=== PATIENT | male | born 1985 | race Caucasian/White ===

== ENCOUNTER 2018-04-29 18:19 | Emergency (ER) | payer OTHER ==
[~2018-04-29 18:19] MED LIST: ACETYL PO; AMLODIPINE/BENA1 CAP PO; ATORVASTATIN CA20 MG PO; BETASERON 0.3 M1 KIT SC; CALCIUM 600600 M1 PO; CARBATROL PO; CARNI PO; CARVEDILOL12.5 MG PO; HYDROCORTISONE IV; LIORESAL 10MG T10 MG PO; MULTIVITAMIN1 TAB PO; MYCOPHENOLATE500 MG PO; PREDNISONE5 MG PO; PROPRANOLOL1 MG/ML PO; TIZANIDINE4 MG PO; TYLENOL XSTR500 MG PO; VITAMIN D50000 IU PO
[2018-04-29 18:29] VITALS: BP 150/90
--- NOTE | 2018-04-29 19:29 | ED GI/GU/ABDOMINAL COMPLAINT ---
History of Present Illness General Chief Complaint: Male Genitourinary Problems Stated Complaint: SWELLING TO GROIN AREA Source: patient, family Exam Limitations: no limitations Vital Signs & Intake/Output Vital Signs & Intake/Output Vital Signs Date Time Temp Pulse Resp B/P B/P Pulse O2 O2 Flow FiO2 Mean Ox Delivery Rate 04/29 1849 Room Air 04/29 1829 98.3 82 18 150/90 93 Room Air Allergies Coded Allergies: adhesive (BLISTERS 04/29/18) lactose (LACTOSE INTOLERANT 04/29/18) adhesive tape (Intermediate, BLISTERS - KERLIX IS USED AND TEGADERM OKAY ) milk (Intermediate, EAR INFECTIOM 12/21/15) Reconcile Medications Acetaminophen 500 MG TABLET 1 TAB PO AD WITH BETA INTERFERON SHOTS (Reported) Acetylcarnitine (Acetyl L-Carnitine) (Unknown Strength) CAPSULE 400 MG PO BID SUPPLEMENT (Reported) Amlodipine Besylate/Benazepril (Amlodipine-Benazepril 5-20 MG) 5 MG-20 MG CAPSULE 1 CAP PO DAILY BP (Reported) Atorvastatin Calcium 20 MG TABLET 1 TAB PO DAILY CHOLESTEROL (Reported) Baclofen 10 MG TABLET 3 TAB PO BID MUSCLE SPASMS (Reported) Baclofen 10 MG TABLET 4 TAB PO QAM MUSCLE SPASMS (Reported) Biotin 300 MCG TABLET 1 TAB PO DAILY SUPPLEMENT (Reported) Calcium Carbonate (TUMS) (Unknown Strength) TAB.CHEW 2 TAB PO DAILY SUPPLEMENT (Reported) Carbamazepine 300 MG CPMP.12HR 2 CAP PO BID SEIZURES (Reported) Carvedilol 6.25 MG TABLET 1 TAB PO BID HEART/BP (Reported) Cholecalciferol (Vitamin D3) (Vitamin D) (Unknown Strength) CAPSULE (Unknown Dose) PO DAILY SUPPLEMENT (Reported) Clotrimazole/Betamethasone Dip (Clotrimazole-Betamethasone Crm) 1 %-0.05 % CREAM..G. 1 KYREE TOP TID fungal infection apply to affected area(s) Interferon Beta-1b (Betaseron) 0.3 MG KIT 0.3 MG SC Monday MS ( Reported) Multivitamin-Min/Iron/FA/Vit K (Multi-Day Plus Minerals Tablet) 18 MG IRON-400 MCG-25 MCG TABLET 1 TAB PO DAILY SUPPLEMENT (Reported) Mycophenolate Mofetil 500 MG TABLET 1 TAB PO BID UNKNOWN (Reported) Nystatin (Nystop) 100,000 UNIT/GRAM POWDER 1 KYREE TD TID yeast Prednisone 5 MG TABLET 1 TAB PO DAILY STEROID (Reported) Propranolol HCl 20 MG TABLET 1 TAB PO TID TREMORS (Reported) Tizanidine HCl (Zanaflex) 2 MG CAPSULE 1 CAP PO QPM MUSCLE RELAXER (Reported) Triage Note: 32M W HX MS ARRIVES WITH TESTICULAR SWELLING SINCE MONDAY, NOW PAINFUL AND RED. AFEBRILE. DENIES PENILE DISCHARGE. DENIES DYSURIA. REPORTS SOME LOW ABD PAIN AND DENIES N/V Triage Nurses Notes Reviewed? yes Onset: Gradual Duration: day(s): Timing: recent history Quality/Severity: moderate Location: testicle HPI: 32yo male with hx of MS presents to ED complaining of testicular swelling and pain x 2-3 days. Patient began complaining of testicular swelling on 04/28. He reported testicular pain beginning today. He cannot say which testicle is bothering him. Patient has remote history of surgical repair of undescended testicle. They deny fevers, chills, dysuria, abdominal pain. (Jenny Kunz) Past History Travel History Traveled to [place] past 21 day No Medical History Any Pertinent Medical History? see below for history Neurological: multiple sclerosis, BLIND SEIZURES Cardiovascular: hypertension Renal: chronic kidney disease Endocrine: PROTEIN UREA Surgical History Surgical History: non-contributory Psychosocial History Who do you live with Patient and family What is your primary language Uzbek Tobacco Use: Never used Family History Hx Contributory? No (Jenny Kunz) Review of Systems Review of Systems Constitutional: Reports: no symptoms. EENTM: Reports: no symptoms. Respiratory: Reports: no symptoms. Cardiovascular: Reports: no symptoms. GI: Reports: no symptoms. Genitourinary: Reports: see HPI. Musculoskeletal: Reports: no symptoms. Skin: Reports: no symptoms. Neurological/Psychological: Reports: no symptoms. Hematologic/Endocrine: Reports: no symptoms. Immunologic/Allergic: Reports: no symptoms. All Other Systems: Reviewed and Negative (Jenny Kunz) Physical Exam Physical Exam General Appearance: well developed/nourished, no apparent distress, alert, awake Head: atraumatic, normal appearance Eyes: Bilateral: other (pinpoint pupils). Ears, Nose, Throat, Mouth: hearing grossly normal Neck: normal inspection, supple, full range of motion Respiratory: normal breath sounds, no respiratory distress, lungs clear Cardiovascular: regular rate/rhythm Gastrointestinal: normal bowel sounds, soft, non-tender, no organomegaly Male Genitals: Scrotum is enlarged, cantaloupe size, mildly tender, erythema to folds of thighs and mildly to scrotum Back: normal inspection, normal range of motion Extremities: normal range of motion Neurologic/Psych: awake, alert, oriented x 3 Skin: erythema Core Measures ACS in differential dx? No Sepsis Present: No Sepsis Focused Exam Completed? No (Rosa PANCHAL,Jenny Tapia) Progress Differential Diagnosis: epididymitis, hernia, orchitis, testicular torsion, ureterolithiasis, urethritis, UTI/pyelo Plan of Care: Orders Procedure Date/time Status Add-on Test (ER Only) 04/29 2046 Active CULTURE,URINE 04/29 1830 Active URINALYSIS 04/29 1830 Complete COMPREHENSIVE METABOLIC PANEL 04/29 1830 Complete CBC WITHOUT DIFFERENTIAL 04/29 1830 Complete Laboratory Tests 04/29/182047: Urinalysis MOD H, Urine Color YEL, Urine Clarity HAZY H, Urine pH 6.0, Ur Specific [place] 1.025, Urine Protein >=300 H, Urine Ketones NEG, Urine Nitrite NEG, Urine Bilirubin NEG, Urine Urobilinogen 0.2, Ur Leukocyte Esterase NEG, Ur Microscopic SEDIMENT EXAMINED, Urine RBC 3-5, Urine Hemoglobin NEG, Urine Glucose NEG 04/29/181938: Anion Gap 9, Estimated GFR > 60, BUN/Creatinine Ratio 29.0 H, Glucose 83, Calcium 8.9, Total Bilirubin 0.2, AST 22, ALT 37, Alkaline Phosphatase 108, Total Protein 6.2 L, Albumin 3.1 L, Globulin 3.1, Albumin/Globulin Ratio 1.0 L, CBC w Diff NO MAN DIFF REQ, RBC 4.02 L, MCV 91.2, MCH 30.5, MCHC 33.5, RDW 12.6, MPV 8.5, Gran % 61.2, Lymphocytes % 26.5, Monocytes % 10.6 H, Eosinophils % 1.2, Basophils % 0.5, Absolute Granulocytes 4.6, Absolute Lymphocytes 2.0, Absolute Monocytes 0.8 H, Absolute Eosinophils 0.1, Absolute Basophils 0 Microbiology 04/29 2048 URINE ROUT: Urine Culture - RECD Discuss ultrasound results with Dr. Dover - she states if we feel significant infection may admit however based on patient's labs outpatient follow-up would also be appropriate. She states she'll be able to see the patient in 1-2 days in the office. The patient was seen and evaluated by Dr. Nick. Rash appears more consistent with Leta. Will initiate topical creams and have urology follow- up. Patient and father agree plan of care. Strict precautions given. Diagnostic Imaging: Viewed by Me: Ultrasound. Discussed w/RAD: Ultrasound. Radiology Impression: PATIENT: MELE PENN IV PRESENT AGE: 32 PATIENT ACCOUNT NO: [id number] : 84 LOCATION: [facility] ORDERING PHYSICIAN: Jenny PANCHAL SERVICE DATE: 04/29/18 EXAM TYPE: US - US-TESTICULAR EXAMINATION: US SCROTUM CLINICAL INFORMATION: Rule out torsion COMPARISON: None TECHNIQUE: A sonogram of the scrotum was performed assessing ayala-scale appearance and color Doppler flow. Spectral analysis and Doppler interrogation was performed. FINDINGS: RIGHT: Right testicle measures 3.7 x 2.6 x 3 cm, . Parenchymal echotexture is normal. No focal testicular parenchymal lesions are visualized. Normal symmetric intratesticular flow is visualized. There is a RIGHT testicular hydrocele. There is significant scrotal wall thickening swelling and edema could be cellulitis. LEFT: Left testicle not found in the testicular sac might be ectopic or might have been removed. IMPRESSION: 1. The LEFT testicle not found in the scrotum, could be ectopic or have been removed. Please correlate clinically. 2. Right testicle exhibits normal vascular flow, no torsion. 3. There is RIGHT testicular hydrocele. 4. There is diffuse scrotal swelling could be cellulitis. DICTATED BY: John MAR, Nico DATE/TIME DICTATED:04/29/181938 PATIENT PORTAL CONCIERGE:DARLIN DATE/TIME TRANSCRIBED:04/29/181938 CONFIDENTIAL, DO NOT COPY WITHOUT APPROPRIATE AUTHORIZATION. <Electronically signed in Other Vendor System> SIGNED BY: John MAR,Nico 04/29/181944 Initial ED EKG: none (Rosa PANCHAL,Jenny Tapia) Radiology Impression: PATIENT: MELE PENN IV PRESENT AGE: 32 PATIENT ACCOUNT NO: [id number] : 84 LOCATION: [facility] ORDERING PHYSICIAN: Jenny PANCHAL SERVICE DATE: 04/29/18 EXAM TYPE: US - US-TESTICULAR EXAMINATION: US SCROTUM CLINICAL INFORMATION: Rule out torsion COMPARISON: None TECHNIQUE: A sonogram of the scrotum was performed assessing ayala-scale appearance and color Doppler flow. Spectral analysis and Doppler interrogation was performed. FINDINGS: RIGHT: Right testicle measures 3.7 x 2.6 x 3 cm, . Parenchymal echotexture is normal. No focal testicular parenchymal lesions are visualized. Normal symmetric intratesticular flow is visualized. There is a RIGHT testicular hydrocele. There is significant scrotal wall thickening swelling and edema could be cellulitis. LEFT: Left testicle not found in the testicular sac might be ectopic or might have been removed. IMPRESSION: 1. The LEFT testicle not found in the scrotum, could be ectopic or have been removed. Please correlate clinically. 2. Right testicle exhibits normal vascular flow, no torsion. 3. There is RIGHT testicular hydrocele. 4. There is diffuse scrotal swelling could be cellulitis. DICTATED BY: John MAR, Nico DATE/TIME DICTATED:04/29/181938 PATIENT PORTAL CONCIERGE:DARLIN DATE/TIME TRANSCRIBED:04/29/181938 CONFIDENTIAL, DO NOT COPY WITHOUT APPROPRIATE AUTHORIZATION. <Electronically signed in Other Vendor System> SIGNED BY: John MAR,Hadeer 04/29/181944 (Sandoval MAR,Nii Bean) Departure Departure Disposition: HOME OR SELF CARE Condition: Stable Clinical Impression Primary Impression: Hydrocele Secondary Impressions: Scrotal swelling Referrals: Brendan MAR,Kurtis Velasquez MD (PCP/Family) Additional Instructions: Apply cream and then powder topically 3 times a day. Follow-up with the urology specialist tomorrow. Return to the emergency department with worsening symptoms or other concerns. Please note that there might be incidental findings in your evaluation that are unrelated to the current emergency department visit. Please notify your primary care doctor about this emergency department visit in order to obtain and review all of the testing performed so that these incidental findings can be monitored as needed. If you had an x-ray performed, please understand that some fractures may not be seen on the initial set of x-rays. If your symptoms persist you might need a repeat set of x-rays to check for such a fracture. If you had a laceration evaluated, please understand that foreign bodies such as glass or wood may not be visible to the naked eye or on plain x-rays. If the wound becomes red, swollen, increasingly more painful or if there is any drainage from the wound, please have it reevaluated by a physician for the possibility of a retained foreign body. If you're unable to follow up as outlined in the discharge instructions please return to the emergency department. Thank you for choosing the [facility] Emergency Department for your care. It was a pleasure to serve you today. Departure Forms: Customer Survey General Discharge Information Prescriptions: Current Visit Scripts Nystatin (Nystop) 1 KYREE TD TID #1 BOT Ref 3 Clotrimazole/Betamethasone Dip (Clotrimazole-Betamethasone Crm) 1 KYREE TOP TID #15 GM apply to affected area(s) (Rosa PANCHAL,Jenny Tapia) PA/[employer]ING [employer]OL TECHNICIAN Co-Sign Statement Statement: ED Attending supervision documentation- [x] I saw and evaluated the patient. I have also reviewed all the pertinent lab results and diagnostic results. I agree with the findings and the plan of care as documented in the PA's/[employer] TECHNICIAN's documentation. pt has significant scrotal swelling, u/s does not show torsion or acute issue... pt with significant yeast infection... i doubt bacterial infection at this point... pt given rx for nystatin powder and lotrisone... close follow up advised. pt referred to urology. [] I have reviewed the ED Record and agree with the PA's/[employer]ING TO[employer] TECHNICIAN's documentation. [] Additions or exceptions (if any) to the PAs/[employer]ING TO[employer] TECHNICIAN's note and plan are summarized below: [] (Sandoval MAR,Nii Bean)
--- NOTE | 2018-04-29 19:45 | ULTRASOUND REPORT ---
EXAMINATION: US SCROTUM CLINICAL INFORMATION: Rule out torsion COMPARISON: None TECHNIQUE: A sonogram of the scrotum was performed assessing ayala-scale appearance and color Doppler flow. Spectral analysis and Doppler interrogation was performed. FINDINGS: RIGHT: Right testicle measures 3.7 x 2.6 x 3 cm, . Parenchymal echotexture is normal. No focal testicular parenchymal lesions are visualized. Normal symmetric intratesticular flow is visualized. There is a RIGHT testicular hydrocele. There is significant scrotal wall thickening swelling and edema could be cellulitis. LEFT: Left testicle not found in the testicular sac might be ectopic or might have been removed. IMPRESSION: 1. The LEFT testicle not found in the scrotum, could be ectopic or have been removed. Please correlate clinically. 2. Right testicle exhibits normal vascular flow, no torsion. 3. There is RIGHT testicular hydrocele. 4. There is diffuse scrotal swelling could be cellulitis.
[2018-04-29 20:01] LABS: ABSOLUTE BASOPHIL COUNT 0 /CUMM (0.0-0.2); ABSOLUTE EOSINOPHIL COUNT 0.1 /CUMM (0.0-0.7); ABSOLUTE GRANULOCYTE CT 4.6 /CUMM (1.4-6.5); ABSOLUTE MONOCYTE COUNT 0.8 /CUMM (0.10-0.60); BASOPHIL % 0.5 % (0.0-2.0); EOSINOPHIL % 1.2 % (0-5); GRANULOCYTE % 61.2 % (42.2-75.2); HEMATOCRIT 36.7 % (42-52); MEAN CORPUSCULAR HGB 30.5 PG (27.0-31.0); MEAN CORPUSCULAR HGB CONC 33.5 G/DL (33.0-37.0); MEAN CORPUSCULAR VOLUME 91.2 FL (80.0-94.0); MEAN PLATELET VOLUME 8.5 FL (7.4-10.4); PLATELET COUNT 245 /CUMM (130-400); RBC DISTRIBUTION WIDTH 12.6 % (11.5-14.5); RED BLOOD CELL CT 4.02 /CUMM (4.70-6.10); WHITE BLOOD CELL COUNT 7.6 /CUMM (4.8-10.8)
[2018-04-29] MEDS ORDERED: AMLODIPINE-BEN1 EAC2 PO (20:16)
[2018-04-29] MEDS ORDERED: ACETYL L-CARNI500 MG PO (20:17)
[2018-04-29] MEDS ORDERED: ATORVASTATIN CA20 M1 PO (20:17)
[2018-04-29] MEDS ORDERED: CARVEDILOL6.25 M1 PO (20:17)
[2018-04-29] MEDS ORDERED: TUMS200 MG PO (20:18)
[2018-04-29] MEDS ORDERED: MULTI-DAY PLUS1 EAC1 PO (20:18)
[2018-04-29] MEDS ORDERED: ACETAMINOPHEN500 M4 PO (20:19)
[2018-04-29] MEDS ORDERED: BETASERON0.3 M1 SC (20:20)
[2018-04-29] MEDS ORDERED: BACLOFEN10 M1 PO ×2 (20:21)
[2018-04-29] MEDS ORDERED: CARBAMAZEPINE300 M1 PO (20:22)
[2018-04-29] MEDS ORDERED: MYCOPHENOLATE500 M1 PO (20:24)
[2018-04-29] MEDS ORDERED: PREDNISONE5 M1 PO (20:26)
[2018-04-29] MEDS ORDERED: ZANAFLEX2 M2 PO (20:26)
[2018-04-29] MEDS ORDERED: PROPRANOLOL HCL20 M1 PO (20:26)
[2018-04-29] MEDS ORDERED: BIOTIN300 MC1 PO (20:27)
[2018-04-29] MEDS ORDERED: VITAMIN D2000 UNIT PO (20:27)
[2018-04-29] MEDS ORDERED: CLOTRIMAZOLE-BE15 GM TOP (21:31)
[2018-04-29] MEDS ORDERED: NYSTOP60 GM TD (21:31)
== END 2018-04-29 21:46 ==
LOC: ERH 18:19
PROVIDERS: Physician Assistant
DX: N43.3 Hydrocele, unspecified (principal); N50.89 Other specified disorders of the male genital organs
CPT/HCPCS: 81001; 87086

== ENCOUNTER 2018-04-30 15:55 | Inpatient (IN) | payer OTHER ==
[~2018-04-30] VITALS: Ht 160 cm; Wt 100.9 kg
[~2018-04-30 15:55] MED LIST changes: +ACETAMINOPHEN500 M4 PO; +ACETYL L-CARNI500 MG PO; +AMLODIPINE-BEN1 EAC2 PO; +ATORVASTATIN CA20 M1 PO; +BACLOFEN10 M1 PO; +BETASERON0.3 M1 SC; +BIOTIN300 MC1 PO; +CARBAMAZEPINE300 M1 PO; +CARVEDILOL6.25 M1 PO; +CLOTRIMAZOLE-BE15 GM TOP; +MULTI-DAY PLUS1 EAC1 PO; +MYCOPHENOLATE500 M1 PO; +NYSTOP60 GM TD; +PREDNISONE5 M1 PO; +PROPRANOLOL HCL20 M1 PO; +TUMS200 MG PO; +VITAMIN D2000 UNIT PO; +ZANAFLEX2 M2 PO
[2018-04-30 16:21] LABS: ABSOLUTE BASOPHIL COUNT 0 /CUMM (0.0-0.2); ABSOLUTE EOSINOPHIL COUNT 0.1 /CUMM (0.0-0.7); ABSOLUTE GRANULOCYTE CT 7.9 /CUMM (1.4-6.5); ABSOLUTE LYMPH COUNT 1.7 /CUMM (1.2-3.4); ABSOLUTE MONOCYTE COUNT 0.5 /CUMM (0.10-0.60); BASOPHIL % 0 % (0.0-2.0); EOSINOPHIL % 1.2 % (0-5); GRANULOCYTE % 76.9 % (42.2-75.2); HEMATOCRIT 36.4 % (42-52); MEAN CORPUSCULAR HGB 30.6 PG (27.0-31.0); MEAN CORPUSCULAR HGB CONC 33.4 G/DL (33.0-37.0); MEAN CORPUSCULAR VOLUME 91.5 FL (80.0-94.0); MEAN PLATELET VOLUME 8.5 FL (7.4-10.4); PLATELET COUNT 250 /CUMM (130-400); RBC DISTRIBUTION WIDTH 12.4 % (11.5-14.5); RED BLOOD CELL CT 3.98 /CUMM (4.70-6.10); WHITE BLOOD CELL COUNT 10.3 /CUMM (4.8-10.8)
--- NOTE | 2018-04-30 17:26 | ED GI/GU/ABDOMINAL COMPLAINT ---
History of Present Illness General Chief Complaint: Male Genitourinary Problems Stated Complaint: SWOLLEN SCROTUM? Source: patient, old records Exam Limitations: no limitations Vital Signs & Intake/Output Vital Signs & Intake/Output Vital Signs Date Time Temp Pulse Resp B/P B/P Pulse O2 O2 Flow FiO2 Mean Ox Delivery Rate 05/01 2033 111 152/82 05/01 1506 98.3 115 20 160/66 94 Room Air 05/01 0832 142/90 05/01 0658 98.2 90 20 160/100 96 Room Air 05/01 0632 162/100 05/01 0632 162/100 04/30 2342 152/62 04/30 2235 98.3 83 20 152/62 98 ED Intake and Output 05/01 0000 04/30 1200 Intake Total 320 Output Total Balance 320 Intake, IV 200 Intake, Oral 120 Patient 209 lb Weight Weight Bed scale Measurement Method Reconcile Medications Acetaminophen 500 MG TABLET 1 TAB PO AD WITH BETA INTERFERON SHOTS (Reported) Acetylcarnitine (Acetyl L-Carnitine) (Unknown Strength) CAPSULE 400 MG PO BID SUPPLEMENT (Reported) Amlodipine Besylate/Benazepril (Amlodipine-Benazepril 5-20 MG) 5 MG-20 MG CAPSULE 1 CAP PO DAILY BP (Reported) Atorvastatin Calcium 20 MG TABLET 1 TAB PO DAILY CHOLESTEROL (Reported) Baclofen 10 MG TABLET 3 TAB PO NOON & NIGHT MUSCLE SPASMS (Reported) Baclofen 10 MG TABLET 4 TAB PO QAM MUSCLE SPASMS (Reported) Biotin 300 MCG TABLET 1 TAB PO DAILY SUPPLEMENT (Reported) Calcium Carbonate (TUMS) (Unknown Strength) TAB.CHEW 2 TAB PO DAILY SUPPLEMENT (Reported) Carbamazepine 300 MG CPMP.12HR 2 CAP PO BID SEIZURES (Reported) Carvedilol 6.25 MG TABLET 1 TAB PO BID HEART/BP (Reported) Cholecalciferol (Vitamin D3) (Vitamin D) (Unknown Strength) CAPSULE (Unknown Dose) PO DAILY SUPPLEMENT (Reported) Clotrimazole/Betamethasone Dip (Clotrimazole-Betamethasone Crm) 1 %-0.05 % CREAM..G. 1 KYREE TOP TID fungal infection apply to affected area(s) Interferon Beta-1b (Betaseron) 0.3 MG KIT 0.3 MG SC Monday MS ( Reported) Multivitamin-Min/Iron/FA/Vit K (Multi-Day Plus Minerals Tablet) 18 MG IRON-400 MCG-25 MCG TABLET 1 TAB PO DAILY SUPPLEMENT (Reported) Mycophenolate Mofetil 500 MG TABLET 1 TAB PO BID UNKNOWN (Reported) Nystatin (Nystop) 100,000 UNIT/GRAM POWDER 1 KYREE TD TID yeast Prednisone 5 MG TABLET 1 TAB PO DAILY STEROID (Reported) Propranolol HCl 20 MG TABLET 1 TAB PO TID TREMORS (Reported) Tizanidine HCl (Zanaflex) 2 MG CAPSULE 1 CAP PO QPM MUSCLE RELAXER (Reported) Triage Note: PT HERE WITH SWOLLEN SCROTUM. PT WAS SEEN HERE YESTERDAY FOR SAME. PT FAMILY MEMBER STATES THAT SCROTUM IS TWICE THE SIZE AT IT WAS YESTERDAY. Triage Nurses Notes Reviewed? yes Onset: Abrupt Duration: day(s):, constant Timing: recent history Quality/Severity: moderate Location: scrotal Radiation: no radiation Activities at Onset: none No Modifying Factors: none HPI: 32-year-old male comes into the emergency room with increased scrotal swelling. Patient was seen here yesterday for scrotal swelling. The symptoms began this past Monday 4 days ago. He has a history of MS and is bedbound. He currently has a Tucker catheter in place. No fever chills vomiting. Increased swelling and pain. He saw the urologist today who sent him here for admission to the hospital and further evaluation. (Mahad Franklin) Allergies Coded Allergies: adhesive (BLISTERS 04/29/18) lactose (LACTOSE INTOLERANT 04/29/18) adhesive tape (Intermediate, BLISTERS - KERLIX IS USED AND TEGADERM OKAY ) (Michael June DO) Past History Travel History Traveled to [place] past 21 day No Medical History Any Pertinent Medical History? see below for history Neurological: multiple sclerosis, BLIND SEIZURES Cardiovascular: hypertension Renal: chronic kidney disease Endocrine: PROTEIN UREA Surgical History Surgical History: non-contributory Psychosocial History Who do you live with Patient and family What is your primary language Syrian Tobacco Use: Never used ETOH Use: denies use Illicit Drug Use: denies illicit drug use Family History Hx Contributory? No (Mahad Franklin) Review of Systems Review of Systems Constitutional: Reports: no symptoms. EENTM: Reports: no symptoms. Respiratory: Reports: no symptoms. Cardiovascular: Reports: no symptoms. GI: Reports: no symptoms. Genitourinary: Reports: see HPI. Musculoskeletal: Reports: no symptoms. Skin: Reports: no symptoms. Neurological/Psychological: Reports: no symptoms. Hematologic/Endocrine: Reports: no symptoms. Immunologic/Allergic: Reports: no symptoms. All Other Systems: Reviewed and Negative (Mahad Franklin) Physical Exam Physical Exam General Appearance: alert, awake Head: atraumatic, normal appearance Eyes: Bilateral: normal appearance, EOMI. Ears, Nose, Throat, Mouth: hearing grossly normal, moist mucous membrane Neck: normal inspection Respiratory: no respiratory distress Gastrointestinal: soft Male Genitals: scrotal swelling, approximately size of small watermelon, tucker in place, draining yellow urine, beefy-red erythema, warm to touch Extremities: no edema Neurologic/Psych: awake, alert Core Measures ACS in differential dx? No Sepsis Present: No Sepsis Focused Exam Completed? No (Mahad Franklin) Progress Differential Diagnosis: ureterolithiasis, urinary retention, urethritis, UTI/ pyelo, cellulitis, candidiasis Plan of Care: Orders Procedure Date/time Status CBC WITHOUT DIFFERENTIAL 05/02 600 Active BASIC ELECTROLYTES PLUS BUN&CR 05/02 600 Active Change service to 05/01 1149 Active Seizure Precautions 05/01 0228 Active Skin/Pressure Ulcer Assess (Sk 05/01 0225 Active Precautions 05/01 0006 Complete Nursing Misc 05/01 UNK Active Tucker, Insertion/Removal/Asses 05/01 UNK Active PHARMACY COMMUNICATION FORM 05/01 UNK Active MISSING MEDICATION FORM 05/01 UNK Active Skin Integrity Protocol 04/30 2202 Active Turn and Reposition 04/30 2201 Active LACTIC ACID 04/30 2141 Complete Weight 04/30 2131 Complete Vital Signs 04/30 2131 Active Teach/Educate 04/30 2131 Active Pain Treatment and Response 04/30 2131 Active Nutritional Intake, Monitor 04/30 2131 Active Isolation 04/30 2131 Active Intake & Output 04/30 2131 Active Patient Care Conference 04/30 2131 Active Activity/Ambulation 04/30 2131 Active PHYSICIAN CONSULT 04/30 UNK Active Current Medications Sig/Erma Start time Last Medication Dose Stop Time Status Admin Fluconazole 100 MG 2100 05/01 2100 CAN (Diflucan 100MG Tab) Vancomycin HCl 1,500 MG 0500,1700 05/01 1700 AC 05/01 Sodium Chloride 250 ML 1706 (Normal Saline 0.9%) Piperacillin Sod/ 3.375 GM Q6H 05/01 1600 AC 05/01 Tazobactam Sod 1558 (Zosyn) Sodium Chloride 100 ML (Normal Saline 0.9%) Meropenem 1 GM Q8H 05/01 1300 CAN (MEROPENEM) Non-Formulary 0 SEE ADMIN CRITERIA 05/01 1300 CAN Medication (NON FORMULARY) Nystatin 1 KYREE TID 05/01 1052 AC 05/01 (Mycostatin) 2034 Amlodipine Besylate 5 MG DAILY 05/01 0900 AC 05/01 (Norvasc) 0632 Atorvastatin Calcium 20 MG DAILY 05/01 0900 AC 05/01 (Lipitor) 0848 Baclofen 40 MG QAM 05/01 0900 AC 05/01 (Lioresal 10MG 847 Tablet) Fluconazole 400 MG DAILY 05/01 0900 CAN (Diflucan) Sodium Chloride 200 ML (Normal Saline 0.9%) Prednisone 5 MG DAILY 05/01 0900 AC 05/01 0848 Vancomycin HCl 1,000 MG Q12 05/01 0900 CAN Sodium Chloride 250 ML (Normal Saline 0.9%) Ampicillin Sodium/ 3,000 MG Q6 05/01 0741 CAN Sulbactam Sodium (Unasyn) Sodium Chloride 100 ML (Normal Saline 0.9%) Heparin Sodium 5,000 UNIT Q8 04/30 2200 AC 05/01 (Porcine) 1344 Baclofen 30 MG 1200,2100 04/30 2130 AC 05/01 (Lioresal 10MG 2032 Tablet) Tizanidine HCl 2 MG QPM PRN 04/30 2130 AC (Zanaflex) Acetaminophen 650 MG Q6P PRN 04/30 2100 AC (Tylenol) Carvedilol 6.25 MG BID 04/30 2100 AC 05/01 (Coreg) 203 Oxycodone HCl 5 MG Q6H PRN 04/30 2100 AC (Roxicodone) Sodium Chloride 1,000 ML Q10H 04/30 2100 AC 05/01 (Normal Saline 0.9%) 0847 Laboratory Tests 05/01/18 0655: Anion Gap 11, Estimated GFR > 60, BUN/Creatinine Ratio 22.5, PT 11.0, INR 1.01, CBC w Diff NO MAN DIFF REQ, RBC 3.54 L, MCV 92.8, MCH 31.0, MCHC 33.4, RDW 12.4 , MPV 8.9, Gran % 65.5, Lymphocytes % 23.7, Monocytes % 9.6 H, Eosinophils % 0.8, Basophils % 0.4, Absolute Granulocytes 4.8, Absolute Lymphocytes 1.7, Absolute Monocytes 0.7 H, Absolute Eosinophils 0.1, Absolute Basophils 0 05/01/18 0005: Lactic Acid 0.6 L 04/30/18 214: Lactic Acid Cancelled 04/30/182109: Urine Color YEL, Urine Clarity CLEAR, Urine pH 6.5, Ur Specific [place] 1.015, Urine Protein 100 H, Urine Ketones NEG, Urine Nitrite NEG, Urine Bilirubin NEG, Urine Urobilinogen 0.2, Ur Leukocyte Esterase NEG, Ur Microscopic SEDIMENT EXAMINED, Urine RBC 15-25 H, Urine WBC RARE, Ur Epithelial Cells OCCAS, Urine Hemoglobin MOD H, Urine Glucose NEG Microbiology 05/01 5 BLOOD: Blood Culture - RECD 04/30 2110 URINE ROUT: Urine Culture - RES Diagnostic Imaging: Viewed by Me: CT Scan. Discussed w/RAD: CT Scan. Initial ED EKG: none Comments: PATIENT: MELE PENN IV PRESENT AGE: 32 PATIENT ACCOUNT NO: [id number] : 84 LOCATION: [facility] ORDERING PHYSICIAN: Govind PANCHAL SERVICE DATE: 04/30/18 EXAM TYPE: CAT - CT ABD & PELVIS W IV CONTRAST EXAMINATION: CT ABDOMEN AND PELVIS WITH CONTRAST CLINICAL INFORMATION: Significant scrotal swelling since Monday (a total of 4 days). Unable to urinate. Ultrasound suggestive of solitary right testicle. History of multiple sclerosis. COMPARISON: Ultrasound 04/29/2018. TECHNIQUE: Multidetector volumetric imaging was performed of the abdomen and pelvis following IV administration of 95 mL of Optiray 320 intravenous contrast. Sagittal and coronal reformatted images were obtained on the technologist's workstation. DLP: 996.94 mGy-cm FINDINGS: LUNG BASES: The visualized lung bases are unremarkable. LIVER, GALLBLADDER, AND BILIARY TREE: The liver is normal in size, shape, and attenuation. No focal hepatic lesion or biliary ductal dilatation is present. The gallbladder is unremarkable with no evidence of radiopaque gallstones, gallbladder wall thickening, or obvious pericholecystic inflammatory changes. PANCREAS: Unremarkable. SPLEEN: Unremarkable. ADRENAL GLANDS: Unremarkable. KIDNEYS AND URETERS: The kidneys are normal in size, shape, and attenuation. No hydronephrosis, hydroureter, or calculi seen. No perinephric stranding. 1.2 cm round hypodensity within the inferior pole cortex measuring internal attenuation of 12 Hounsfield units. Additional hypodensity within the interpolar region is too small to characterize but statistically most likely represents an additional cyst. BLADDER: Decompressed with a Tucker catheter and unable to be fully evaluated. GASTROINTESTINAL TRACT: The small and large bowel are unremarkable. The appendix is unremarkable. ABDOMINAL WALL: Calcifications within the subcutaneous fat overlying the lower abdomen and buttocks, likely due to subcutaneous injections. LYMPH NODES: Lymphadenopathy is seen along the iliac chains bilaterally and within the retroperitoneum. VASCULAR: No abdominal aortic aneurysm. PELVIC VISCERA: Marked enlargement of the scrotum. The left testicle is not identified and the inguinal canal appears to lack a spermatic cord. The right testicle and surrounding hydrocele are seen. The majority of the scrotum appears markedly edematous with blood vessels streaming through the markedly thickened scrotum. OSSEOUS STRUCTURES: Left convex scoliosis lumbar spine. Chronic-appearing flattening of the right femoral head, possibly related to the patient's history of multiple sclerosis. IMPRESSION: 1. Marked scrotal swelling. Appropriate urological consultation and clinical correlation are requested. 2. 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 An ectopic testicle is not identified within the abdomen or pelvis. 3. Lymphadenopathy within the inguinal chains bilaterally as well as within the retroperitoneum. 4. Other nonacute findings as above. This critical result was discussed with Mahad Barger at 6:14 PM on 04/30/2018 and it was ascertained that the content and urgency of the report was understood at the time of direct communication. DICTATED BY: Tere Christine MD DATE/TIME DICTATED:04/30/181736 SIGNALS INTELLIGENCE ANALYSIS MANAGER:DARLIN DATE/TIME TRANSCRIBED:04/30/181736 CONFIDENTIAL, DO NOT COPY WITHOUT APPROPRIATE AUTHORIZATION. <Electronically signed in Other Vendor System> SIGNED BY: Tere Christine MD 04/30/18 6212 (Mahad Franklin) Departure Departure Disposition: STILL A PATIENT Condition: Stable Clinical Impression Primary Impression: Cellulitis, scrotum Referrals: Kurtis Mccormack MD (PCP/Family) Departure Forms: Customer Survey General Discharge Information Admission Note Spoke With: Loretta Huertas MD Documentation of Exam: Documentation of any treatments & extenuating circumstances including Concerns Regarding Discharge (functional status, medication knowledge or non-compliance, living conditions, etc.) that warrant an admission rather than observation: IV antibiotics. Wound care consultation. Urology consultation. Failed outpatient management. Medically not safe for discharge. (Mahad Franklin) PA/PULP TESTER Co-Sign Statement Statement: ED Attending supervision documentation- [X] I saw and evaluated the patient. I have also reviewed all the pertinent lab results and diagnostic results. I agree with the findings and the plan of care as documented in the PA's/PULP TESTER's documentation. [X] I have reviewed the ED Record and agree with the PA's/PULP TESTER's documentation. [] Additions or exceptions (if any) to the PAs/PULP TESTER's note and plan are summarized below: [] The patient's care was discussed with me. I have reviewed the above and agree with the plan of care. (Michael June DO) Admission Note Spoke With: Loretta Huertas MD Documentation of Exam: Documentation of any treatments & extenuating circumstances including Concerns Regarding Discharge (functional status, medication knowledge or non-compliance, living conditions, etc.) that warrant an admission rather than observation: IV antibiotics. Wound care consultation. Urology consultation. Failed outpatient management. Medically not safe for discharge. (Mahad Franklin) PA/PULP TESTER Co-Sign Statement Statement: ED Attending supervision documentation- [X] I saw and evaluated the patient. I have also reviewed all the pertinent lab results and diagnostic results. I agree with the findings and the plan of care as documented in the PA's/PULP TESTER's documentation. [X] I have reviewed the ED Record and agree with the PA's/PULP TESTER's documentation. [] Additions or exceptions (if any) to the PAs/PULP TESTER's note and plan are summarized below: [] The patient's care was discussed with me. I have reviewed the above and agree with the plan of care. (Michael June DO)
--- NOTE | 2018-04-30 18:46 | CT SCAN REPORT ---
EXAMINATION: CT ABDOMEN AND PELVIS WITH CONTRAST CLINICAL INFORMATION: Significant scrotal swelling since Monday (a total of 4 days). Unable to urinate. Ultrasound suggestive of solitary right testicle. History of multiple sclerosis. COMPARISON: Ultrasound 04/29/2018. TECHNIQUE: Multidetector volumetric imaging was performed of the abdomen and pelvis following IV administration of 95 mL of Optiray 320 intravenous contrast. Sagittal and coronal reformatted images were obtained on the technologist's workstation. DLP: 996.94 mGy-cm FINDINGS: LUNG BASES: The visualized lung bases are unremarkable. LIVER, GALLBLADDER, AND BILIARY TREE: The liver is normal in size, shape, and attenuation. No focal hepatic lesion or biliary ductal dilatation is present. The gallbladder is unremarkable with no evidence of radiopaque gallstones, gallbladder wall thickening, or obvious pericholecystic inflammatory changes. PANCREAS: Unremarkable. SPLEEN: Unremarkable. ADRENAL GLANDS: Unremarkable. KIDNEYS AND URETERS: The kidneys are normal in size, shape, and attenuation. No hydronephrosis, hydroureter, or calculi seen. No perinephric stranding. 1.2 cm round hypodensity within the inferior pole cortex measuring internal attenuation of 12 Hounsfield units. Additional hypodensity within the interpolar region is too small to characterize but statistically most likely represents an additional cyst. BLADDER: Decompressed with a Gibbons catheter and unable to be fully evaluated. GASTROINTESTINAL TRACT: The small and large bowel are unremarkable. The appendix is unremarkable. ABDOMINAL WALL: Calcifications within the subcutaneous fat overlying the lower abdomen and buttocks, likely due to subcutaneous injections. LYMPH NODES: Lymphadenopathy is seen along the iliac chains bilaterally and within the retroperitoneum. VASCULAR: No abdominal aortic aneurysm. PELVIC VISCERA: Marked enlargement of the scrotum. The left testicle is not identified and the inguinal canal appears to lack a spermatic cord. The right testicle and surrounding hydrocele are seen. The majority of the scrotum appears markedly edematous with blood vessels streaming through the markedly thickened scrotum. OSSEOUS STRUCTURES: Left convex scoliosis lumbar spine. Chronic-appearing flattening of the right femoral head, possibly related to the patient's history of multiple sclerosis. IMPRESSION: 1. Marked scrotal swelling. Appropriate urological consultation and clinical correlation are requested. 2. 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 An ectopic testicle is not identified within the abdomen or pelvis. 3. Lymphadenopathy within the inguinal chains bilaterally as well as within the retroperitoneum. 4. Other nonacute findings as above. This critical result was discussed with Mahad Barger at 6:14 PM on 04/30/2018 and it was ascertained that the content and urgency of the report was understood at the time of direct communication.
--- NOTE | 2018-04-30 19:10 | Cons- Urology ---
General Information and HPI Consulting Request Date of Consult: 04/30/18 Requested By: ER Reason for Consult: Scrotal sweling Source of Information: family Exam Limitations: no limitations History of Present Illness: 32 year old male with MS, on prednisone 5 mg qd, presented to ER yesterday with scrotal enlargement and pain of about 2 days duration. There is no hx of trauma to the area. He is not diabetic and has no hx of urethral stricture. He denies any fever, chills or gross hematuria. In ER yesterday he was afebrile and with normal labs including no leukocytosis. Today the scrotum enlarged further and he was seen in the office by Dr Cardona and referred to the ER for repeat labs and CT scan. 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 The father states that the testicle was never found. He also had an episode of urinary retention about 4 years ago which was related to antihistamine usage. Allergies/Medications Allergies: Coded Allergies: adhesive (BLISTERS 04/29/18) lactose (LACTOSE INTOLERANT 04/29/18) adhesive tape (Intermediate, BLISTERS - KERLIX IS USED AND TEGADERM OKAY ) milk (Intermediate, EAR INFECTIOM 12/21/15) Home Med List: Acetaminophen 500 MG TABLET 1 TAB PO AD WITH BETA INTERFERON SHOTS (Reported) Acetylcarnitine (Acetyl L-Carnitine) (Unknown Strength) CAPSULE 400 MG PO BID SUPPLEMENT (Reported) Amlodipine Besylate/Benazepril (Amlodipine-Benazepril 5-20 MG) 5 MG-20 MG CAPSULE 1 CAP PO DAILY BP (Reported) Atorvastatin Calcium 20 MG TABLET 1 TAB PO DAILY CHOLESTEROL (Reported) Baclofen 10 MG TABLET 3 TAB PO BID MUSCLE SPASMS (Reported) Baclofen 10 MG TABLET 4 TAB PO QAM MUSCLE SPASMS (Reported) Biotin 300 MCG TABLET 1 TAB PO DAILY SUPPLEMENT (Reported) Calcium Carbonate (TUMS) (Unknown Strength) TAB.CHEW 2 TAB PO DAILY SUPPLEMENT (Reported) Carbamazepine 300 MG CPMP.12HR 2 CAP PO BID SEIZURES (Reported) Carvedilol 6.25 MG TABLET 1 TAB PO BID HEART/BP (Reported) Cholecalciferol (Vitamin D3) (Vitamin D) (Unknown Strength) CAPSULE (Unknown Dose) PO DAILY SUPPLEMENT (Reported) Clotrimazole/Betamethasone Dip (Clotrimazole-Betamethasone Crm) 1 %-0.05 % CREAM..G. 1 KYREE TOP TID fungal infection apply to affected area(s) Interferon Beta-1b (Betaseron) 0.3 MG KIT 0.3 MG SC Monday MS ( Reported) Multivitamin-Min/Iron/FA/Vit K (Multi-Day Plus Minerals Tablet) 18 MG IRON-400 MCG-25 MCG TABLET 1 TAB PO DAILY SUPPLEMENT (Reported) Mycophenolate Mofetil 500 MG TABLET 1 TAB PO BID UNKNOWN (Reported) Nystatin (Nystop) 100,000 UNIT/GRAM POWDER 1 KYREE TD TID yeast Prednisone 5 MG TABLET 1 TAB PO DAILY STEROID (Reported) Propranolol HCl 20 MG TABLET 1 TAB PO TID TREMORS (Reported) Tizanidine HCl (Zanaflex) 2 MG CAPSULE 1 CAP PO QPM MUSCLE RELAXER (Reported) Current Medications: Current Medications Sig/Erma Start time Last Medication Dose Route Stop Time Status Admin Ampicillin Sodium/ 3,000 MG ONCE ONE 04/30 184 AC Sulbactam Sodium IV 04/30 191 Sodium Chloride 100 ML Past History Medical History Neurological: multiple sclerosis, BLIND SEIZURES Cardiovascular: hypertension Renal: chronic kidney disease Endocrine: PROTEIN UREA Surgical History Pertinent Surgical History: non-contributory Psychosocial History ETOH Use: denies use Illicit Drug Use: denies illicit drug use Exam & Diagnostic Data Vital Signs and I&O Vital Signs Date Time Temp Pulse Resp B/P B/P Pulse O2 O2 Flow FiO2 Mean Ox Delivery Rate 04/30 1603 97.4 80 16 154/94 95 No acute distress Abd: soft and non tender. Erythema in groin crease bilaterally c/w fungal dermatitis Genitalia: Penis normal. Gibbons in place. Scrotum very enlarged. Scrotal edema present. Some erythema of scrotal skin on L inferiorly. No break in skin. No crepitus. R testicle is not palpable due to the scrotal enlargement and thickening of the scrotal wall Laboratory Tests 04/30 1613 Chemistry Sodium (137 - 145 mmol/L) 141 Potassium (3.5 - 5.1 mmol/L) 4.6 Chloride (98 - 107 mmol/L) 104 Carbon Dioxide (22 - 30 mmol/L) 28 Anion Gap (5 - 16) 9 BUN (9 - 20 mg/dL) 27 H Creatinine (0.7 - 1.2 mg/dL) 1.0 Estimated GFR (>60 ml/min) > 60 BUN/Creatinine Ratio (7 - 25 %) 27.0 H Glucose (65 - 99 mg/dL) 75 Calcium (8.4 - 10.2 mg/dL) 8.9 C-Reactive Prot, Quant (<1.0 mg/dL) Pending Hematology CBC w Diff NO MAN DIFF REQ WBC (4.8 - 10.8 /CUMM) 10.3 RBC (4.70 - 6.10 /CUMM) 3.98 L Hgb (14.0 - 18.0 G/DL) 12.2 L Hct (42 - 52 %) 36.4 L MCV (80.0 - 94.0 FL) 91.5 MCH (27.0 - 31.0 PG) 30.6 MCHC (33.0 - 37.0 G/DL) 33.4 RDW (11.5 - 14.5 %) 12.4 Plt Count (130 - 400 /CUMM) 250 MPV (7.4 - 10.4 FL) 8.5 Gran % (42.2 - 75.2 %) 76.9 H Lymphocytes % (20.5 - 51.1 %) 16.7 L Monocytes % (1.7 - 9.3 %) 5.2 Eosinophils % (0 - 5 %) 1.2 Basophils % (0.0 - 2.0 %) 0 Absolute Granulocytes (1.4 - 6.5 /CUMM) 7.9 H Absolute Lymphocytes (1.2 - 3.4 /CUMM) 1.7 Absolute Monocytes (0.10 - 0.60 /CUMM) 0.5 Absolute Eosinophils (0.0 - 0.7 /CUMM) 0.1 Absolute Basophils (0.0 - 0.2 /CUMM) 0 CT of abd and pelvis: not officially read yeat. Significantly enlarged scrotum. Probable thickening of the scrotal wall with edema. Absent L tesiticle. R hydrocele present Assessment/Plan Assessment/Plan Imp: 1. Scrotal edema with possible scrotal cellulitis. No sign of Meng's gangrene but will need to be watched closely for this 2. Fungal dermatitis in inguinal area 3. R hydrocele on CT scan 4. Absent L testicle 5. MS Plan: 1. Admiit to medicine 2. Broad specturm abx for presumed scrotal cellulitis. 3. Would also give po antifunal, fluconazole 4. U/A and C&S 5. Scrotal elevation 6. IV hydration 7. Repeat labs in AM Consult Acknowledgment - Thank you for your consult request.
--- NOTE | 2018-04-30 19:15 | History & Physical ---
Brenda Umanzor 04/30/181914: General Information and HPI MD Statement: I have seen and personally examined MELE PENN IV and documented this H& P. The patient is a 32 year old M who presented with a patient stated chief complaint of [scrotal swelling]. Source of Information: family, old records Exam Limitations: no limitations History of Present Illness: Mr. 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 Cardona cc of scrotal elargement and pain x 2 days w/o hx of trauma/hx of urethral stricture. Patient and father found out he had difficulty pulling up the sweatpant on Monday night due to swelling scrotum, which at a size about tennis/soft ball. Patient was monitored at home, without any pain until Sunday 04/29 when the pain started at 6/10 around noon time, and then he was brought to ER, underwent ultrasound which showed right testicular hydrocele with no torsion and possible cellulitis. Patient was then sent home without antibiotics but only fungal cream for topical fungal infection in scrotal area. Starting 04/30 patient's scrotum swelling progressed rapidly to twice as the size of before, however was not in severe pain. 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 -Baselines: ambulated with walker at home w/ mostly independent IADLs and ADLs, despite being MS and blindness. Per family, since Monday more bedbound due to sickness. During our clinical interaction, patient denied recent travel/sick contacts, fever/lightheadedness/diaphoresis/night sweat/weight change/cough/SOB/Chest Pain /Palpitation/bowel movement abnormality, or other skin/musculoskeletal/ neurological/mood disorders, or dietary/appetite change. -Smoking: denied -Alcohol: denied -Rec Drugs: denied Patient was seen by Dr. Murillo for MS over the past years with remote exacerbation in 2011. He has been compliant with MS meds including mycophenolate /prednisone/Interferon beta inj. Father was at bedside to provide most history as patient was not entirely verbal at baseline. Allergies/Medications Allergies: Coded Allergies: adhesive (BLISTERS 04/29/18) lactose (LACTOSE INTOLERANT 04/29/18) adhesive tape (Intermediate, BLISTERS - KERLIX IS USED AND TEGADERM OKAY ) milk (Intermediate, EAR INFECTIOM 12/21/15) Home Med list Acetaminophen 500 MG TABLET 1 TAB PO AD WITH BETA INTERFERON SHOTS (Reported) Acetylcarnitine (Acetyl L-Carnitine) (Unknown Strength) CAPSULE 400 MG PO BID SUPPLEMENT (Reported) Amlodipine Besylate/Benazepril (Amlodipine-Benazepril 5-20 MG) 5 MG-20 MG CAPSULE 1 CAP PO DAILY BP (Reported) Atorvastatin Calcium 20 MG TABLET 1 TAB PO DAILY CHOLESTEROL (Reported) Baclofen 10 MG TABLET 3 TAB PO NOON & NIGHT MUSCLE SPASMS (Reported) Baclofen 10 MG TABLET 4 TAB PO QAM MUSCLE SPASMS (Reported) Biotin 300 MCG TABLET 1 TAB PO DAILY SUPPLEMENT (Reported) Calcium Carbonate (TUMS) (Unknown Strength) TAB.CHEW 2 TAB PO DAILY SUPPLEMENT (Reported) Carbamazepine 300 MG CPMP.12HR 2 CAP PO BID SEIZURES (Reported) Carvedilol 6.25 MG TABLET 1 TAB PO BID HEART/BP (Reported) Cholecalciferol (Vitamin D3) (Vitamin D) (Unknown Strength) CAPSULE (Unknown Dose) PO DAILY SUPPLEMENT (Reported) Clotrimazole/Betamethasone Dip (Clotrimazole-Betamethasone Crm) 1 %-0.05 % CREAM..G. 1 KYREE TOP TID fungal infection apply to affected area(s) Interferon Beta-1b (Betaseron) 0.3 MG KIT 0.3 MG SC Monday MS ( Reported) Multivitamin-Min/Iron/FA/Vit K (Multi-Day Plus Minerals Tablet) 18 MG IRON-400 MCG-25 MCG TABLET 1 TAB PO DAILY SUPPLEMENT (Reported) Mycophenolate Mofetil 500 MG TABLET 1 TAB PO BID UNKNOWN (Reported) Nystatin (Nystop) 100,000 UNIT/GRAM POWDER 1 KYREE TD TID yeast Prednisone 5 MG TABLET 1 TAB PO DAILY STEROID (Reported) Propranolol HCl 20 MG TABLET 1 TAB PO TID TREMORS (Reported) Tizanidine HCl (Zanaflex) 2 MG CAPSULE 1 CAP PO QPM MUSCLE RELAXER (Reported) Past History Travel History Traveled to [place] past 21 day No Medical History Neurological: multiple sclerosis, BLIND SEIZURES Cardiovascular: hypertension Renal: chronic kidney disease Endocrine: PROTEIN UREA Surgical History Surgical History: non-contributory Past Family/Social History Psychosocial History Smoking Status: Never Smoked ETOH Use: denies use Illicit Drug Use: denies illicit drug use Review of Systems Review of Systems Constitutional: Reports: see HPI. Exam & Diagnostic Data Last 24 Hrs of Vital Signs/I&O Vital Signs Date Time Temp Pulse Resp B/P B/P Pulse O2 O2 Flow FiO2 Mean Ox Delivery Rate 04/30 1603 97.4 80 16 154/94 95 Physical Exam General Appearance Alert, Oriented X3, Cooperative, No Acute Distress Skin No Rashes, No Breakdown, No Significant Lesion Skin Temp/Moisture Exam: Warm/Dry Sepsis Skin Exam (color): Normal for Ethnicity HEENT Atraumatic, bilateral blindness 2/2 optic nerve atrophy Cardiovascular Regular Rate Lungs Clear to Auscultation, Normal Air Movement Abdomen Normal Bowel Sounds, Soft, No Tenderness Neurological Strength at 5/5 X4 Ext Extremities BLEs chronic edematous +1 Reproductive (MALE) enlarged scrotum at a size of near-volleyball w/ erythema of scrotal skin, no skin break or crepitus. Non-tender on palpation. Gibbons in place within penis without clog., some whitish foul smelling discharge in groin crease. Body Front and Back (Adult) 1) Last 24 Hrs of Labs/Tl: Laboratory Tests 04/30/18 2110: Urine Color YEL, Urine Clarity CLEAR, Urine pH 6.5, Ur Specific [place] 1.015, Urine Protein 100 H, Urine Ketones NEG, Urine Nitrite NEG, Urine Bilirubin NEG, Urine Urobilinogen 0.2, Ur Leukocyte Esterase NEG, Ur Microscopic SEDIMENT EXAMINED, Urine RBC 15-25 H, Urine WBC RARE, Ur Epithelial Cells OCCAS, Urine Hemoglobin MOD H, Urine Glucose NEG 04/30/18 1613: Anion Gap 9, Estimated GFR > 60, BUN/Creatinine Ratio 27.0 H, Glucose 75, Hemoglobin A1c Pending, Calcium 8.9, C-Reactive Prot, Quant 2.9 H, CBC w Diff NO MAN DIFF REQ, RBC 3.98 L, MCV 91.5, MCH 30.6, MCHC 33.4, RDW 12.4, MPV 8.5, Gran % 76.9 H, Lymphocytes % 16.7 L, Monocytes % 5.2, Eosinophils % 1.2, Basophils % 0, Absolute Granulocytes 7.9 H, Absolute Lymphocytes 1.7, Absolute Monocytes 0.5, Absolute Eosinophils 0.1, Absolute Basophils 0 Microbiology 04/30 2110 URINE ROUT: Urine Culture - RECD 04/30 2000 BLOOD: Blood Culture - RECD 04/30 183 BLOOD: Blood Culture - ORD Assessment/Plan Assessment: On admission, Vitals: stable afebrile, HR 80, RR 16, BP 154/94, 95% RA -CBC: unremarkable except mild normacytic anemia 12.2/36.4, PLT 250 -BMP: unremrakable -Ab CT: 1. Marked scrotal swelling. Appropriate urological consultation and clinical correlation are requested. 2. 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 An ectopic testicle is not identified within the abdomen or pelvis. 3. Lymphadenopathy within the inguinal chains bilaterally as well as within the retroperitoneum. 4. Other nonacute findings as above. -EKG: None in ER -Last Echo: not in system -Interventions in ER: Unasyn x 1 Mr. 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 Cardona cc of scrotal elargement and pain x 2 days w/o hx of trauma/hx of urethral stricture. Based on history, patient's scrotum swelling rapidly progressed within 12 hours prior to this admission with skin erythema and imaging findings of scrotum edema, however no apparent vascular compromise/torsion, aligning with a purulent cellulitis clinical picture however no signs of fournir gangrene yet. Patient's family endorsed possible pre- diabetes in remote admissions however was not on any oral hypoglycemics at home. Topical fungal cream had no effect from T-1 ER course. Urology consult was on board and had suggested Problem list/Assessment/Hospital Course: #Scrotal cellulitis, likely purulent w/ erythema #Scrotal fungal dermatitis #R hydrocele on imaging #Absent L testicle/spermatic cord on imaging #PMH of Multiple sclerosis on steroid/mycophenolate/interferon beta - Admit to general medicine - Vitals per protocol, monitor I&O per protocol. - scrotal elevation around the clock - would start empiric coverage of purulent cellulitis w/ vancomycin for MRSA and meropenem for pseudomonas and also all common cellulitis coverage including MSSA /Streps. - Recheck HbA1c. - would also start fungal coverage w/ PO fluconazole 100mg qd - continuous gentle IV hydration 100cc/hr w/ in/out charting. monitor if any urinary obstruction and may utilize bladder scan if patient c/o of suprapubic pain. - recheck lactic acid. - pending blood/urine culture, UA - PT/OT per clinical course. Patient should remain bedrest for now until scrotum swelling resolves. - Close monitor for any increasing pain/numbness/fever/chills/any signs of systemic toxicity as patient's scrotal swelling is at risk of necrotizing fasciatis - Continue home meds, however may hold mycophenolate/interferon beta injection for now due to acute infection. - Appreciated urology input. - Pending ID consult in the AM - Will inform Dr. Murillo in the AM regarindg holding MS meds and seek for alternative if needed. - pain per pathway DVT prophylaxis Heparin SC + ALPS Regular Diet IV Access: Peripheral IV Full Code As Ranked By This Provider Problem List: 1. Cellulitis, scrotum 2. Scrotal swelling 3. Leta infection Core Measures/Misc (06/18) Acute Coronary Syndrome ACS Diagnosis: No Congestive Heart Failure Congestive Heart Failure Diagnosis No Cerebrovascular Accident CVA/TIA Diagnosis: No VTE (View Protocol) VTE Risk Factors Immobility No Mechanical VTE Prophylaxis d/t N/A MechProphylax Ordered No VTE Pharm Prophylaxis d/t NA PharmProphylax ordered Sepsis (View protocol) Sepsis Present: No If YES complete Sepsis Event Note If YES complete Sepsis Event Note Kiya MARLoretta 05/01/18 0221: Core Measures/Misc (06/18) Sepsis (View protocol) If YES complete Sepsis Event Note If YES complete Sepsis Event Note Attending MD Review Statement Attending Statement Attending MD Statement: examined this patient, discuss w/resident/PA/NOTE SPECIALIST, agreed w/resident/PA/NOTE SPECIALIST Attending Assessment/Plan: I agree with the resident's history physical and assessment and plan with the following additions. This is a 32-year-old male with an unfortunate past medical history significant for multiple sclerosis resulting in limited functional capacity at baseline referred to the hospital by his urologist for evaluation of significant scrotal edema and discharge. He had a CT scan of the pelvis which revealed marked scrotal swelling along with lymphadenopathy within the inguinal chains bilaterally/retroperitoneum. Problem list: Severe scrotal cellulitis and purulent with significant edema and erythema extending into the inguinal canal bilaterally also evidence of scrotal fungal dermatitis. Patient's urologist has been consulted and will follow the patient. We will start the patient on broad-spectrum antibiotics including vancomycin and meropenem. Diflucan p.o. for fungal infection. An infectious disease consultation will need to be placed tomorrow morning. Scrotal elevation. Blood cultures have been obtained. Monitor fever curve CBC and any evidence of rapid progression of cellulitis.We will also need to monitor patient for any evidence of fornier's gangrene.
[2018-04-30 22:35] VITALS: BP 102/62; BP 152/62
[2018-05-01 06:58] VITALS: BP 160/100
--- NOTE | 2018-05-01 08:03 | PN- Urology ---
Subjective Subjective: Resting comfortabley. No distress Objective Vital Signs and I&Os Vital Signs Date Time Temp Pulse Resp B/P B/P Pulse O2 O2 Flow FiO2 Mean Ox Delivery Rate 05/01 0658 98.2 90 20 160/100 96 Room Air 05/01 0632 162/100 05/01 0632 162/100 04/30 2342 152/62 04/30 2235 98.3 83 20 152/62 98 04/30 2007 77 20 155/91 99 Room Air 04/30 1603 97.4 80 16 154/94 95 Intake & Output 05/01 0805/01 0000 04/30 1600 04/30 0804/30 0000 04/29 1600 Intake Total 620 320 Output Total 500 Balance 120 320 Intake, IV 500 200 Intake, Oral 120 120 Output, Urine 500 Patient 209 lb 200 lb Weight Weight Bed scale Reported by Patient Measurement Method Abd: soft and non tender. Erythema in groin crease bilaterally Genitalia: tucker in place. Scrotum remains massively enlarge. Erythema of L scrotum improved since yesterday. No tenderness. Skin intact. Exam most c/w severe scrotal edema Labs reviewed and lactic acid, wbc count all normal CT scan reviewed Assessment/Plan Assessment/Plan Imp: 1. Massive scrotal edema. Unclear etiology. ? scrotal cellulitis. There is no objective sign of Meng's gangrene based on exam, vitals signs, labs or imaginge but will need to be observed carefully for this 2. MS Plan: 1. f/u cultures 2. broad spectrum abx 3. fluconazole 4. scrotal elevation 5. daily labs 6. close attention to f/u physical exams
[2018-05-01 08:32] VITALS: BP 142/90
[2018-05-01 08:56] LABS: ABSOLUTE BASOPHIL COUNT 0 /CUMM (0.0-0.2); ABSOLUTE EOSINOPHIL COUNT 0.1 /CUMM (0.0-0.7); ABSOLUTE GRANULOCYTE CT 4.8 /CUMM (1.4-6.5); ABSOLUTE LYMPH COUNT 1.7 /CUMM (1.2-3.4); ABSOLUTE MONOCYTE COUNT 0.7 /CUMM (0.10-0.60); BASOPHIL % 0.4 % (0.0-2.0); EOSINOPHIL % 0.8 % (0-5); GRANULOCYTE % 65.5 % (42.2-75.2); HEMATOCRIT 32.8 % (42-52); MEAN CORPUSCULAR HGB CONC 33.4 G/DL (33.0-37.0); MEAN CORPUSCULAR VOLUME 92.8 FL (80.0-94.0); MEAN PLATELET VOLUME 8.9 FL (7.4-10.4); PLATELET COUNT 245 /CUMM (130-400); RBC DISTRIBUTION WIDTH 12.4 % (11.5-14.5); RED BLOOD CELL CT 3.54 /CUMM (4.70-6.10); WHITE BLOOD CELL COUNT 7.3 /CUMM (4.8-10.8)
--- NOTE | 2018-05-01 11:11 | PN- Housestaff ---
Jose ManuelNata 05/01/18 1110: Subjective Follow-up For: scrotal swelling/cellulitis Subjective: Patient examined at bedside. Has no complaints. He says the pain in the scrotal area is a 1. His father states that the patient is the most active and talkative he has bene in a long time. Denies fever, chills, headache, nausea, vomiting, plapitations overnight. Review of Systems Constitutional: Reports: see HPI. Objective Last 24 Hrs of Vital Signs/I&O Vital Signs Date Time Temp Pulse Resp B/P B/P Pulse O2 O2 Flow FiO2 Mean Ox Delivery Rate 05/04 1549 110 198/82 05/04 1156 89 220/118 05/04 1000 93 152/96 05/04 0959 93 152/96 05/04 0653 97.7 97 18 150/90 93 05/03 2147 98.0 84 17 170/96 94 Room Air 05/03 2110 84 170/96 Intake & Output 05/04 1600 05/04 0800 05/04 0000 Intake Total 800 600 490 Output Total 580 1600 1250 Balance 220 -1000 -760 Intake, IV 200 10 Intake, Oral 800 400 480 Number 0 1 2 Bowel Movements Output, Urine 580 1600 1250 Physical Exam General Appearance: Alert, Oriented X3, Cooperative, No Acute Distress Skin: No Rashes, diffuse funagl dermatitis in the scrotal area Neck: Supple Cardiovascular: Regular Rate, Normal S1, Normal S2, No Murmurs Lungs: Clear to Auscultation Abdomen: Normal Bowel Sounds, Soft, No Tenderness Reproductive (MALE) scrotal edema with diffuse erythem seen, Assessment/Plan Assessment: Mr. 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 The swelling appears to have improved from yesterday with scrotal rugae visible. The skin is still erythematous, but no cracks or breaks in skin appreciated. No evidence of Meng's gangrene as of now. The scrotal area is still covered in fungal dermatitis. Problem list 1.Scrotal cellulitis, likely purulent w/ erythema 2.Scrotal fungal dermatitis 3.R hydrocele on imaging 4.Absent L testicle/spermatic cord on imaging 5.PMH of Multiple sclerosis on steroid/interferon beta Plan: 1. Scrotal Cellulitis - scrotal elevation around the clock - We will give the patient a one time dose of Vancomycin - We will monitor the patient with frequent physical exams and watchout for the develpment of pain/numbness/fever/chills/ signs of systemic toxicity or any evidence suggestive of development of Meng's gangrene. 2. Scrotal Fungal Dermatitis - Consider switching to IV Fluconazole -Daily application of Nystatin cream -We will ensure adequate hygeine is being maintained 3. Hypertension -Continue the patient on Amlodipine 5mg and Lisinopril 20mg 4. Multiple Sclerosis -We are holding in on Interferon B and Mycophenolate at the moment -Continue Prednisone 5mg DVT prophylaxis Heparin SC + ALPS Regular Diet IV Access: Peripheral IV Full Code Problem List: 1. Cellulitis, scrotum 2. Scrotal swelling 3. Leta infection 4. Hydrocele 5. Spasticity 6. Multiple sclerosis 7. History of - hypertension 8. Blind 9. Disorder of optic nerve Pain Ratin Pain Location: scrotal area Pain Goal: Pain 4 or less Pain Plan: pathway Tomorrow's Labs & Rationales: cbc and bep Alessandra Rosales 05/01/18 1318: Attending MD Review Statement Attending Statement Attending MD Statement: examined this patient, discuss w/resident/PA/SALES ASSISTANT DISPLAYS, agreed w/resident/PA/SALES ASSISTANT DISPLAYS, discussed with family, reviewed EMR data (avail), discussed with nursing, discussed with case mgmt, reviewed images, amended to note Attending Assessment/Plan: Patient seen/examined bedside. 32-year-old male with an unfortunate past medical history significant for multiple sclerosis resulting in limited functional capacity at baseline referred to the hospital by his urologist for evaluation of significant scrotal edema and discharge. He had a CT scan of the pelvis which revealed marked scrotal swelling along with lymphadenopathy within the inguinal chains bilaterally/retroperitoneum. ASSESSEMENT 1. Severe scrotal cellulitis and purulent with significant edema and erythema extending into the inguinal canal bilaterally also evidence of scrotal fungal dermatitis. 2. MS baseline. Follow urologist. Continue broad-spectrum antibiotics including vancomycin and meropenem. Flucanazole iv 400 mg one dose now. ID consult. Scrotal elevation. Blood cultures f/u. Monitor fever curve CBC and any evidence of rapid progression of cellulitis. We will also need to monitor patient for any evidence of fornier's gangrene. Serial scrotal exams. If he develops gangrene then consult general surgery urgent/emergently. Plan of care d/wed family bedside.
--- NOTE | 2018-05-01 12:49 | Cons- Infect Disease ---
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 Cardona d/t of scrotal elargement and pain x 2 days w/o hx of trauma or urethral stricture. Patient and father found out he had difficulty pulling up the sweatpant on Monday night due to swelling scrotum, which was the size of a "soft ball". Patient was monitored at home, without any pain until Sunday 04/29 when the pain started at 6/10 around noon time, and then he was brought to ER, underwent ultrasound which showed right testicular hydrocele with no torsion and possible cellulitis. Patient was then sent home without antibiotics but only fungal cream for topical fungal infection in scrotal area. Starting 04/30 patient's scrotum swelling progressed rapidly to twice as the size of before, however was not in severe pain. 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 Patient was seen by Dr. Murillo for MS over the past years with remote exacerbation in 2011. He has been compliant with MS meds including mycophenolate /prednisone/Interferon inj. Father was at bedside to provide most history as patient with difficulty to answer questions. No fever; chills reported. Allergies/Medications Allergies: Coded Allergies: adhesive (BLISTERS 04/29/18) lactose (LACTOSE INTOLERANT 04/29/18) adhesive tape (Intermediate, BLISTERS - KERLIX IS USED AND TEGADERM OKAY ) Home Med List: Acetaminophen 500 MG TABLET 1 TAB PO AD WITH BETA INTERFERON SHOTS (Reported) Acetylcarnitine (Acetyl L-Carnitine) (Unknown Strength) CAPSULE 400 MG PO BID SUPPLEMENT (Reported) Amlodipine Besylate/Benazepril (Amlodipine-Benazepril 5-20 MG) 5 MG-20 MG CAPSULE 1 CAP PO DAILY BP (Reported) Atorvastatin Calcium 20 MG TABLET 1 TAB PO DAILY CHOLESTEROL (Reported) Baclofen 10 MG TABLET 3 TAB PO NOON & NIGHT MUSCLE SPASMS (Reported) Baclofen 10 MG TABLET 4 TAB PO QAM MUSCLE SPASMS (Reported) Biotin 300 MCG TABLET 1 TAB PO DAILY SUPPLEMENT (Reported) Calcium Carbonate (TUMS) (Unknown Strength) TAB.CHEW 2 TAB PO DAILY SUPPLEMENT (Reported) Carbamazepine 300 MG CPMP.12HR 2 CAP PO BID SEIZURES (Reported) Carvedilol 6.25 MG TABLET 1 TAB PO BID HEART/BP (Reported) Cholecalciferol (Vitamin D3) (Vitamin D) (Unknown Strength) CAPSULE (Unknown Dose) PO DAILY SUPPLEMENT (Reported) Clotrimazole/Betamethasone Dip (Clotrimazole-Betamethasone Crm) 1 %-0.05 % CREAM..G. 1 KYREE TOP TID fungal infection apply to affected area(s) Interferon Beta-1b (Betaseron) 0.3 MG KIT 0.3 MG SC Monday MS ( Reported) Multivitamin-Min/Iron/FA/Vit K (Multi-Day Plus Minerals Tablet) 18 MG IRON-400 MCG-25 MCG TABLET 1 TAB PO DAILY SUPPLEMENT (Reported) Mycophenolate Mofetil 500 MG TABLET 1 TAB PO BID UNKNOWN (Reported) Nystatin (Nystop) 100,000 UNIT/GRAM POWDER 1 KYREE TD TID yeast Prednisone 5 MG TABLET 1 TAB PO DAILY STEROID (Reported) Propranolol HCl 20 MG TABLET 1 TAB PO TID TREMORS (Reported) Tizanidine HCl (Zanaflex) 2 MG CAPSULE 1 CAP PO QPM MUSCLE RELAXER (Reported) Current Medications: Current Medications Sig/Erma Start time Last Medication Dose Route Stop Time Status Admin Acetaminophen 650 MG Q6P PRN 04/30 2100 AC PO Amlodipine Besylate 5 MG DAILY 05/01 0900 AC 05/01 PO 0632 Ampicillin Sodium/ 3,000 MG Q6 05/01 0741 CAN Sulbactam Sodium IV Sodium Chloride 100 ML Ampicillin Sodium/ 3,000 MG ONCE ONE 04/30 1845 DC 05/01 Sulbactam Sodium IV 04/30 1914 0040 Sodium Chloride 100 ML Atorvastatin Calcium 20 MG DAILY 05/01 09 AC 05/01 PO 0848 Baclofen 40 MG QAM 05/01 09 AC 05/01 PO 0848 Baclofen 30 MG 1200,2100 04/30 2130 AC 05/01 PO 1238 Carvedilol 6.25 MG BID 04/30 2100 AC 05/01 PO 0632 Fluconazole 100 MG 2100 05/01 2100 AC PO Fluconazole 400 MG ONCE ONE 05/01 1100 AC 05/01 Sodium Chloride 200 ML IV 05/01 1259 1238 Fluconazole 400 MG DAILY 05/01 0900 CAN Sodium Chloride 200 ML IV Fluconazole 100 MG DAILY 04/30 2145 DC 04/30 PO 2342 Heparin Sodium 5,000 UNIT Q8 04/30 2200 AC 05/01 (Porcine) SC 0538 Meropenem 1 GM Q8H 05/01 1300 CAN IV Meropenem 1 GM 1200 05/01 1200 DC IV Meropenem 1 GM ONCE ONE 04/30 204 DC 05/01 IV 04/30 204 0217 Non-Formulary 0 SEE ADMIN CRITERIA 05/01 1300 UNVr Medication ANY Nystatin 1 KYREE TID 05/01 1052 AC 05/01 TOP 1238 Oxycodone HCl 5 MG Q6H PRN 04/30 2100 AC PO Prednisone 5 MG DAILY 05/01 0900 AC 05/01 PO 0848 Sodium Chloride 1,000 ML Q10H 04/30 2100 AC 05/01 IV 0847 Tizanidine HCl 2 MG QPM PRN 04/30 2130 AC PO Vancomycin HCl 1,500 MG Q12H 05/01 1300 AC Sodium Chloride 250 ML IV Vancomycin HCl 1,000 MG Q12 05/01 0900 CAN Sodium Chloride 250 ML IV Vancomycin HCl 1,000 MG ONCE ONE 04/30 204 DC 05/01 Sodium Chloride 250 ML IV 04/30 2144 0108 Past History Travel History Traveled to [place] past 21 day No Medical History Blood Transfusion Hx: No Neurological: multiple sclerosis, BLIND SEIZURES EENT: NONE Cardiovascular: hypertension Respiratory: pneumonia Gastrointestinal: NONE Hepatic: NONE Renal: chronic kidney disease Musculoskeletal: NONE Psychiatric: NONE Endocrine: PROTEIN UREA Blood Disorders: NONE Cancer(s): NONE 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 Exam & Diagnostic Data Last 24 Hrs of Vital Signs/I&O Vital Signs Date Time Temp Pulse Resp B/P B/P Pulse O2 O2 Flow FiO2 Mean Ox Delivery Rate 05/01 832 142/90 05/01 0658 98.2 90 20 160/100 96 Room Air 05/01 0632 162/100 05/01 0632 162/100 04/30 2342 152/62 04/30 2235 98.3 83 20 152/62 98 04/30 2007 77 20 155/91 99 Room Air 04/30 1603 97.4 80 16 154/94 95 Intake & Output 05/01 1600 05/01 0800 05/01 0000 Intake Total 620 320 Output Total 500 Balance 120 320 Intake, IV 500 200 Intake, Oral 120 120 Number 1 Bowel Movements Output, Urine 500 Patient 209 lb Weight Weight Bed scale Measurement Method Physical Exam Other Physical Findings: General Appearance Alert, Oriented X3, Cooperative, No Acute Distress Skin No Rashes, No Breakdown, No Significant Lesion Skin Temp/Moisture Exam: Warm/Dry Sepsis Skin Exam (color): Normal for Ethnicity HEENT Atraumatic, bilateral blindness 2/2 optic nerve atrophy Cardiovascular Regular Rate Lungs Clear to Auscultation, Normal Air Movement Abdomen Normal Bowel Sounds, Soft, No Tenderness Neurological Awake; dysarthria Extremities BLEs chronic edematous +1 Reproductive (MALE) enlarged scrotum w/ erythema of scrotal skin extending to the suprapubic area, no skin break or crepitus. Non-tender on palpation. Gibbons in place patent Last 24 Hours of Lab Results: Laboratory Tests 05/01 05/01 04/30 0655 0005 2146 Chemistry Sodium (137 - 145 mmol/L) 144 Potassium (3.5 - 5.1 mmol/L) 4.1 Chloride (98 - 107 mmol/L) 108 H Carbon Dioxide (22 - 30 mmol/L) 25 Anion Gap (5 - 16) 11 BUN (9 - 20 mg/dL) 18 Creatinine (0.7 - 1.2 mg/dL) 0.8 Estimated GFR (>60 ml/min) > 60 BUN/Creatinine Ratio (7 - 25 %) 22.5 Lactic Acid (0.7 - 2.1 mmol/L) 0.6 L Cancelled Coagulation PT (9.4 - 12.5 SEC) 11.0 INR (0.90 - 1.17) 1.01 Hematology CBC w Diff NO MAN DIFF REQ WBC (4.8 - 10.8 /CUMM) 7.3 RBC (4.70 - 6.10 /CUMM) 3.54 L Hgb (14.0 - 18.0 G/DL) 11.0 L Hct (42 - 52 %) 32.8 L MCV (80.0 - 94.0 FL) 92.8 MCH (27.0 - 31.0 PG) 31.0 MCHC (33.0 - 37.0 G/DL) 33.4 RDW (11.5 - 14.5 %) 12.4 Plt Count (130 - 400 /CUMM) 245 MPV (7.4 - 10.4 FL) 8.9 Gran % (42.2 - 75.2 %) 65.5 Lymphocytes % (20.5 - 51.1 %) 23.7 Monocytes % (1.7 - 9.3 %) 9.6 H Eosinophils % (0 - 5 %) 0.8 Basophils % (0.0 - 2.0 %) 0.4 Absolute Granulocytes (1.4 - 6.5 /CUMM) 4.8 Absolute Lymphocytes (1.2 - 3.4 /CUMM) 1.7 Absolute Monocytes (0.10 - 0.60 /CUMM) 0.7 H Absolute Eosinophils (0.0 - 0.7 /CUMM) 0.1 Absolute Basophils (0.0 - 0.2 /CUMM) 0 04/300 1846 Chemistry Lactic Acid Cancelled Urines Urine Color (YEL,AMB,STR) YEL Urine Clarity (CLEAR) CLEAR Urine pH (5.0 - 8.0) 6.5 Ur Specific [place] (1.001 - 1.035) 1.015 Urine Protein (NEG,<30 MG/DL) 100 H Urine Ketones (NEG) NEG Urine Nitrite (NEG) NEG Urine Bilirubin (NEG) NEG Urine Urobilinogen (0.1 - 1.0 EU/dl) 0.2 Ur Leukocyte Esterase (NEG) NEG Ur Microscopic SEDIMENT EXAMINED Urine RBC (0 - 5 /HPF) 15-25 H Urine WBC (0 - 2 /HPF) RARE Ur Epithelial Cells (NONE,FEW) OCCAS Urine Hemoglobin (NEG) MOD H Urine Glucose (N MG/DL) NEG 04/30 1613 Chemistry Sodium (137 - 145 mmol/L) 141 Potassium (3.5 - 5.1 mmol/L) 4.6 Chloride (98 - 107 mmol/L) 104 Carbon Dioxide (22 - 30 mmol/L) 28 Anion Gap (5 - 16) 9 BUN (9 - 20 mg/dL) 27 H Creatinine (0.7 - 1.2 mg/dL) 1.0 Estimated GFR (>60 ml/min) > 60 BUN/Creatinine Ratio (7 - 25 %) 27.0 H Glucose (65 - 99 mg/dL) 75 Hemoglobin A1c (4.2 - 5.8 %) 5.3 Calcium (8.4 - 10.2 mg/dL) 8.9 C-Reactive Prot, Quant (<1.0 mg/dL) 2.9 H Hematology CBC w Diff NO MAN DIFF REQ WBC (4.8 - 10.8 /CUMM) 10.3 RBC (4.70 - 6.10 /CUMM) 3.98 L Hgb (14.0 - 18.0 G/DL) 12.2 L Hct (42 - 52 %) 36.4 L MCV (80.0 - 94.0 FL) 91.5 MCH (27.0 - 31.0 PG) 30.6 MCHC (33.0 - 37.0 G/DL) 33.4 RDW (11.5 - 14.5 %) 12.4 Plt Count (130 - 400 /CUMM) 250 MPV (7.4 - 10.4 FL) 8.5 Gran % (42.2 - 75.2 %) 76.9 H Lymphocytes % (20.5 - 51.1 %) 16.7 L Monocytes % (1.7 - 9.3 %) 5.2 Eosinophils % (0 - 5 %) 1.2 Basophils % (0.0 - 2.0 %) 0 Absolute Granulocytes (1.4 - 6.5 /CUMM) 7.9 H Absolute Lymphocytes (1.2 - 3.4 /CUMM) 1.7 Absolute Monocytes (0.10 - 0.60 /CUMM) 0.5 Absolute Eosinophils (0.0 - 0.7 /CUMM) 0.1 Absolute Basophils (0.0 - 0.2 /CUMM) 0 Last 24 Hours of Tl Results: SPEC #: [id number] ALONZO: 04/30/18 STATUS: RES RECD: 04/30/[address]: Noé MAR,Brenda Monsivais SOURCE: URINE ROUT ENTR: 04/30/[address]: Mahad Franklin SPDESC: Kurtis Marcum MD ORDERED: URINE CULTURE Procedure Result > URINE CULTURE Preliminary 05/01/18 NO GROWTH AFTER 1 DAY Diagnostic Data Recent Imaging Findings: SERVICE DATE: 04/30/18 EXAM TYPE: CAT - CT ABD & PELVIS W IV CONTRAST EXAMINATION: CT ABDOMEN AND PELVIS WITH CONTRAST CLINICAL INFORMATION: Significant scrotal swelling since Monday (a total of 4 days). Unable to urinate. Ultrasound suggestive of solitary right testicle. History of multiple sclerosis. COMPARISON: Ultrasound 04/29/2018. TECHNIQUE: Multidetector volumetric imaging was performed of the abdomen and pelvis following IV administration of 95 mL of Optiray 320 intravenous contrast. Sagittal and coronal reformatted images were obtained on the technologist's workstation. DLP: 996.94 mGy-cm FINDINGS: LUNG BASES: The visualized lung bases are unremarkable. LIVER, GALLBLADDER, AND BILIARY TREE: The liver is normal in size, shape, and attenuation. No focal hepatic lesion or biliary ductal dilatation is present. The gallbladder is unremarkable with no evidence of radiopaque gallstones, gallbladder wall thickening, or obvious pericholecystic inflammatory changes. PANCREAS: Unremarkable. SPLEEN: Unremarkable. ADRENAL GLANDS: Unremarkable. KIDNEYS AND URETERS: The kidneys are normal in size, shape, and attenuation. No hydronephrosis, hydroureter, or calculi seen. No perinephric stranding. 1.2 cm round hypodensity within the inferior pole cortex measuring internal attenuation of 12 Hounsfield units. Additional hypodensity within the interpolar region is too small to characterize but statistically most likely represents an additional cyst. BLADDER: Decompressed with a Gibbons catheter and unable to be fully evaluated. GASTROINTESTINAL TRACT: The small and large bowel are unremarkable. The appendix is unremarkable. ABDOMINAL WALL: Calcifications within the subcutaneous fat overlying the lower abdomen and buttocks, likely due to subcutaneous injections. LYMPH NODES: Lymphadenopathy is seen along the iliac chains bilaterally and within the retroperitoneum. VASCULAR: No abdominal aortic aneurysm. PELVIC VISCERA: Marked enlargement of the scrotum. The left testicle is not identified and the inguinal canal appears to lack a spermatic cord. The right testicle and surrounding hydrocele are seen. The majority of the scrotum appears markedly edematous with blood vessels streaming through the markedly thickened scrotum. OSSEOUS STRUCTURES: Left convex scoliosis lumbar spine. Chronic-appearing flattening of the right femoral head, possibly related to the patient's history of multiple sclerosis. IMPRESSION: 1. Marked scrotal swelling. Appropriate urological consultation and clinical correlation are requested. 2. 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 An ectopic testicle is not identified within the abdomen or pelvis. 3. Lymphadenopathy within the inguinal chains bilaterally as well as within the retroperitoneum. 4. Other nonacute findings as above. This critical result was discussed with Mahad Barger at 6:14 PM on 04/30/2018 and it was ascertained that the content and urgency of the report was understood at the time of direct communication. 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 Massive scrotal edema of unclear etiology. Scrotal cellulitis. There is no objective sign of Meng's gangrene based on exam; observed carefully. Suggestion: 1. Empiric abx therapy with iv vancomycin/zosyn/flucoonazole pending BC/UC results. 2. F/U urology recom. 3. Trend CBC, BMP. 4. Call if fever/hypotension. Consult Acknowledgment - Thank you for your consult request.
[2018-05-01 15:06] VITALS: BP 160/66
[2018-05-01 21:16] VITALS: BP 152/82
[2018-05-02 06:45] VITALS: BP 166/100
--- NOTE | 2018-05-02 07:17 | PN- Urology ---
Subjective Subjective: No distress Objective Vital Signs and I&Os Vital Signs Date Time Temp Pulse Resp B/P B/P Pulse O2 O2 Flow FiO2 Mean Ox Delivery Rate 05/02 645 99.1 102 20 166/100 97 Room Air 05/01 2116 98.6 111 18 152/82 94 Room Air 05/01 2033 111 152/82 05/01 1506 98.3 115 20 160/66 94 Room Air 05/01 0832 142/90 Intake & Output 05/02 0805/02 0000 05/01 1600 05/01 0805/01 0000 04/30 1600 Intake Total 1290 1110 1280 620 320 Output Total 1450 1200 450 500 Balance -160 -90 830 120 320 Intake, IV 1050 610 800 500 200 Intake, Oral 240 500 480 120 120 Number 0 1 Bowel Movements Output, Urine 1450 1200 450 500 Patient 209 lb 200 lb Weight Weight Bed scale Reported by Patient Measurement Method Abd: soft and non tender Genitalia: Scrotum continues to be significantly enlarged but appears smaller than yesterday. Scrotal wall is edematous. No significant erythema, no scrotal tenderness, no crepitance or fluctuance. Some chaffing in crease between scrotum and L thigh. Tucker in place Laboratory Tests 05/02 605 Chemistry Sodium Pending Potassium Pending Chloride Pending Carbon Dioxide Pending Anion Gap Pending BUN Pending Creatinine Pending BUN/Creatinine Ratio Pending Hematology CBC w Diff Pending WBC Pending RBC Pending Hgb Pending Hct Pending MCV Pending MCH Pending MCHC Pending RDW Pending Plt Count Pending MPV Pending Assessment/Plan Assessment/Plan Imp: 1. Scrotal enlargement and edema. Etiology unclear. Appears to be slowly improving on abx and may be scrotal cellulitis. No objective evidence of Meng's on exam, labs, or imaging, but will need to be watched closely for this Plan: 1. Continue abx 2. Continue scrotal elevation 3. Continue tucker 4. Daily labs 5. Will follow closely with physical exam 6. Also continue antifungal tx Core Measures Venous Thromboembolism VTE Risk Factors Immobility No Mechanical VTE Prophylaxis d/t N/A MechProphylax Ordered No VTE Pharm Prophylaxis d/t NA PharmProphylax ordered
[2018-05-02 07:57] LABS: ABSOLUTE BASOPHIL COUNT 0 /CUMM (0.0-0.2); ABSOLUTE EOSINOPHIL COUNT 0.1 /CUMM (0.0-0.7); ABSOLUTE GRANULOCYTE CT 6.6 /CUMM (1.4-6.5); ABSOLUTE MONOCYTE COUNT 0.9 /CUMM (0.10-0.60); BASOPHIL % 0.4 % (0.0-2.0); GRANULOCYTE % 69.2 % (42.2-75.2); HEMATOCRIT 31.3 % (42-52); MEAN CORPUSCULAR HGB 30.9 PG (27.0-31.0); MEAN CORPUSCULAR HGB CONC 33.7 G/DL (33.0-37.0); MEAN CORPUSCULAR VOLUME 91.9 FL (80.0-94.0); MEAN PLATELET VOLUME 8.8 FL (7.4-10.4); PLATELET COUNT 233 /CUMM (130-400); RBC DISTRIBUTION WIDTH 12.3 % (11.5-14.5); RED BLOOD CELL CT 3.41 /CUMM (4.70-6.10); WHITE BLOOD CELL COUNT 9.6 /CUMM (4.8-10.8)
--- NOTE | 2018-05-02 08:43 | PN- Housestaff ---
Nata Richard 05/02/18 0842: Subjective Follow-up For: SCROTAL SWELLING/CELLULITIS Subjective: Patient examined at bedside. Has no complaints. He says his pain has improved from a 1 yesterday to zero today. He complains of a mild itching on his face. His fatehr states he develops it if he has not washed in a few days. Denies fever, chills, headache, nausea, vomiting, plapitations overnight. Review of Systems Constitutional: Denies: chills, fever. Cardiovascular: Denies: chest pain, edema, palpitations. Objective Last 24 Hrs of Vital Signs/I&O Vital Signs Date Time Temp Pulse Resp B/P B/P Pulse O2 O2 Flow FiO2 Mean Ox Delivery Rate 05/02 1446 102 176/100 05/02 1406 99.1 100 18 160/92 96 Room Air 05/02 0751 100 166/100 05/02 0750 100 166/100 05/02 0645 99.1 102 20 166/100 97 Room Air 05/01 2116 98.6 111 18 152/82 94 Room Air 05/01 2033 111 152/82 05/01 1506 98.3 115 20 160/66 94 Room Air Intake & Output 05/02 1600 05/02 0800 05/02 0000 Intake Total 1290 1110 Output Total 1800 1450 1200 Balance -1800 -160 -90 Intake, IV 1050 610 Intake, Oral 240 500 Number 1 0 Bowel Movements Output, Urine 1800 1450 1200 Physical Exam General Appearance: Alert, Oriented X3, Cooperative, No Acute Distress Skin: mild rash noticed on the face Skin Temp/Moisture Exam: Warm/Dry Neck: Supple Cardiovascular: Regular Rate, Normal S1, Normal S2, No Murmurs Lungs: Clear to Auscultation Abdomen: Normal Bowel Sounds, Soft Extremities: No Edema Vascular: Normal Pulses Reproductive (MALE) scrotal swelling of the size of a soccer ball. The swelling is cystic, fluctuant. Skin over the swelling is erythematous. However, scrotal wrinkles are present. Fungal infection + Assessment/Plan Assessment: Mr. 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 The swelling appears to have improved from yesterday with scrotal rugae visible. The skin is still erythematous, but no cracks or breaks in skin appreciated. No evidence of Elton's gangrene as of now. The scrotal area is still covered in fungal dermatitis. The patient has been consistently having high blood pressure readings with episodes of tachycardia. Problem list 1.Scrotal cellulitis, likely purulent w/ erythema 2.Scrotal fungal dermatitis 3.R hydrocele on imaging 4.Absent L testicle/spermatic cord on imaging 5.PMH of Multiple sclerosis on steroid/interferon beta Plan: 1. Scrotal Cellulitis - scrotal elevation around the clock - Continue broad spectrum antibiotics: Vancomycin and Zosyn - We will monitor the patient with frequent physical exams and watchout for the develpment of pain/numbness/fever/chills/ signs of systemic toxicity or any evidence suggestive of development of Elton's gangrene. - Prelimnary blood and urine cultures -ve. We will continue following them 2. Scrotal Fungal Dermatitis - Consider switching to IV Fluconazole -Daily application of Nystatin cream -We will ensure adequate hygeine is being maintained 3. Hypertension - The patient has been having consistently elevated blood pressure with increased HR - We will increase his Amlodipine from 5mg to 20mg -We will add Lisinopril 20mg - We will continue monitoring blood pressure and and heart rate and consider an EKG if it does not improve. 4. Multiple Sclerosis -We are holding in on Interferon B and Mycophenolate at the moment -Continue Prednisone 5mg DVT prophylaxis Heparin SC + ALPS Regular Diet IV Access: Peripheral IV Full Code Problem List: 1. Cellulitis, scrotum 2. Scrotal swelling 3. Leta infection 4. Hydrocele 5. Spasticity 6. Multiple sclerosis 7. History of - hypertension 8. Blind Pain Ratin Pain Location: scrotum Pain Goal: Pain 4 or less Pain Plan: pathway Tomorrow's Labs & Rationales: Trend CBC and BEP Alessandra Rosales 05/02/18 1103: Attending MD Review Statement Attending Statement Attending MD Statement: examined this patient, discuss w/resident/PA/ACCOUNTS RECEIVABLE PROCESSOR, agreed w/resident/PA/ACCOUNTS RECEIVABLE PROCESSOR, discussed with family, reviewed EMR data (avail), discussed with nursing, discussed with case mgmt, reviewed images, amended to note Attending Assessment/Plan: Patient seen/examined bedside. Hs scrotal swellng seems to be mild improved with wrinkles+. He has nystatin application on his groin. No obvious signs of elton gamgrene or necrotic areas. ASSESSEMENT 1. Severe scrotal cellulitis with significant edema and erythema extending into the inguinal canal bilaterally also evidence of scrotal fungal dermatitis. 2. MS baseline. Follow urology and ID. Continue broad-spectrum antibiotics including vancomycin/ zosyn/flucanoazole. Blood cultures f/u. Scrotal elevation. We will also need to monitor patient for any evidence of fornier's gangrene. Serial scrotal exams. If he develops gangrene then consult general surgery urgent/emergently. Plan of care discussed with patient/family bedside. In agreement.
--- NOTE | 2018-05-02 12:58 | PN- Infect Dx ---
Subjective Subjective: Afebrile on steroids without complaints. His father notes some decrease in size of the scrotum compared to yesterday. Objective Last 24 Hrs of Vital Signs/I&O Vital Signs Date Time Temp Pulse Resp B/P B/P Pulse O2 O2 Flow FiO2 Mean Ox Delivery Rate 05/02 0751 100 166/100 05/02 0750 100 166/100 08 0645 99.1 102 20 166/100 97 Room Air 05/01 2116 98.6 111 18 152/82 94 Room Air 05/01 2033 111 152/82 05/01 1506 98.3 115 20 160/66 94 Room Air Intake & Output 05/02 1600 05/02 0800 08 0000 Intake Total 1290 1110 Output Total 1450 1200 Balance -160 -90 Intake, IV 1050 610 Intake, Oral 240 500 Number 1 0 Bowel Movements Output, Urine 1450 1200 Physical Exam Other Physical Findings: He appears comfortable in no acute distress marked scrotal edema, with mild erythema and desquamation noted, nontender to palpation, with no active drainage; Gibbons catheter is in place Results Last 24 Hours of Lab Results: Laboratory Tests 05/02 605 Chemistry Sodium (137 - 145 mmol/L) 143 Potassium (3.5 - 5.1 mmol/L) 4.1 Chloride (98 - 107 mmol/L) 110 H Carbon Dioxide (22 - 30 mmol/L) 23 Anion Gap (5 - 16) 10 BUN (9 - 20 mg/dL) 14 Creatinine (0.7 - 1.2 mg/dL) 0.8 Estimated GFR (>60 ml/min) > 60 BUN/Creatinine Ratio (7 - 25 %) 17.5 Hematology CBC w Diff NO MAN DIFF REQ WBC (4.8 - 10.8 /CUMM) 9.6 RBC (4.70 - 6.10 /CUMM) 3.41 L Hgb (14.0 - 18.0 G/DL) 10.6 L Hct (42 - 52 %) 31.3 L MCV (80.0 - 94.0 FL) 91.9 MCH (27.0 - 31.0 PG) 30.9 MCHC (33.0 - 37.0 G/DL) 33.7 RDW (11.5 - 14.5 %) 12.3 Plt Count (130 - 400 /CUMM) 233 MPV (7.4 - 10.4 FL) 8.8 Gran % (42.2 - 75.2 %) 69.2 Lymphocytes % (20.5 - 51.1 %) 20.3 L Monocytes % (1.7 - 9.3 %) 9.1 Eosinophils % (0 - 5 %) 1.0 Basophils % (0.0 - 2.0 %) 0.4 Absolute Granulocytes (1.4 - 6.5 /CUMM) 6.6 H Absolute Lymphocytes (1.2 - 3.4 /CUMM) 2.0 Absolute Monocytes (0.10 - 0.60 /CUMM) 0.9 H Absolute Eosinophils (0.0 - 0.7 /CUMM) 0.1 Absolute Basophils (0.0 - 0.2 /CUMM) 0 Last 24 Hours of Tl Results: Blood cultures 2 April 30/May 01 negative Urine culture April 30 negative Assessment/Plan ID Impression: Marked scrotal enlargement, of unclear etiology, with his temperatures and white blood cell count remaining normal since admission, making an infectious etiology somewhat less likely, though the swelling has apparently decreased on antibiotics. He is currently on Vancomycin, Zosyn and Fluconazole but feel that his antibiotic regimen can be adjusted and this has been discussed with Urology. Suggestion: 1. Discontinue Vancomycin, Zosyn and Fluconazole 2. Begin Unasyn 3 g IV every 6 hours 3. Continue topical Nystatin
[2018-05-02 14:06] VITALS: BP 160/92
[2018-05-02 14:46] VITALS: BP 176/100
[2018-05-02 16:00] VITALS: BP 168/90
[2018-05-02 22:53] VITALS: BP 153/93
[2018-05-03 07:10] VITALS: BP 164/98
--- NOTE | 2018-05-03 07:11 | PN- Housestaff ---
Jose ManuelStoneyi 05/03/18 0711: Subjective Follow-up For: scrotal swelling/cellulitis Subjective: Patient was examined on the bedside. He complained of crampy abdominal pain overnight and had a couple of episodes of diarrhea. The nurse reports that he took a long time to pass the stool. In the morning, the patient was comfortably eating his breakfast. He did, however complained of cramping LLQ pain. He rates the pain as a 1 in his scrotum which was zero yesterday. He denies fever, chills , plapitations, headache, nausea or vomiting Review of Systems Constitutional: Reports: see HPI. Objective Last 24 Hrs of Vital Signs/I&O Vital Signs Date Time Temp Pulse Resp B/P B/P Pulse O2 O2 Flow FiO2 Mean Ox Delivery Rate 05/03 1030 88 168/88 05/03 0926 85 180/90 05/03 0820 96 182/98 05/03 0819 98 182/98 05/03 0710 98.0 93 18 164/98 94 Room Air 05/02 2253 98.4 94 18 153/93 95 Room Air 05/02 2213 94 153/93 05/02 1600 168/90 05/02 1446 102 176/100 05/02 1406 99.1 100 18 160/92 96 Room Air Intake & Output 05/03 1600 05/03 0800 05/03 0000 Intake Total 1040 1760 Output Total 1650 Balance 1040 110 Intake, IV 800 800 Intake, Oral 240 960 Number 1 Bowel Movements Output, Urine 1650 Physical Exam General Appearance: Alert, Oriented X3, Cooperative, No Acute Distress Skin: diffuse fungal dermatitis on the scrotum; dermatitis on the face especially on the nose Sepsis Skin Exam (color): Normal for Ethnicity Neck: Supple Cardiovascular: Regular Rate, Normal S1, Normal S2 Lungs: Clear to Auscultation Abdomen: Soft, tenderness apprecited in the LLQ and the suprapubic area Extremities: Normal Pulses Assessment/Plan Assessment: Mr. 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 The swelling appears to have further improved with scrotal rugae visible. The skin is still erythematous but is improving, no cracks or breaks in skin appreciated. No evidence of Meng's gangrene as of now. The scrotal area is still covered in fungal dermatitis. The patient has been consistently having high blood pressure readings with episodes of tachycardia. The patient did complain of some LLQ pain and had a couple of episodes of diarrhea overnight. The pain has persisrtig into the morning. 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 Scrotal Cellulitis - scrotal elevation around the clock - ID input appreciated. We will stop Zosyn, Vancomycin aand Fluconazole per ID recommendation. -The swelling of the patient is slowly but consistently improving. We will continue IV Unasyn for now. - We will monitor the patient with frequent physical exams and watchout for the develpment of pain/numbness/fever/chills/ signs of systemic toxicity or any evidence suggestive of development of Meng's gangrene. - Prelimnary blood and urine cultures -ve. We will continue following them. -Urology input appreciated. Patient has developed urethritis possibly secondary to Gibbons use. Primary urology discontinue Gibbons use. Straight cath the patient if he cannot void on his own. - 2. Scrotal Fungal Dermatitis - We are discontinuing Fluconazole per ID recommemdation -Daily application of Nystatin cream -We will ensure adequate hygeine is being maintained 3. Hypertension - The patient has been having consistently elevated blood pressure with increased HR - We will increase his Amlodipine from 5mg to 10mg -We will increase the dose of Lisinopril if he continues to be hypertensive. -The patinet is eating and drinking well. We would holding off on fluids for now. - We will continue monitoring blood pressure and and heart rate and consider an EKG if it does not improve. 4. Multiple Sclerosis -We are holding in on Interferon B and Mycophenolate at the moment -Continue Prednisone 5mg 6. LLQ pain - The patient had a couple of episodes of diarrhea last night along with some cramping abdominal pain. -We would order CT abodmen and pelvis to rule out diverticulitis or an obstruction. - We would keep him NPO pending CT results We will try to get the patient to get out of the bed into the chair today. DVT prophylaxis Heparin SC + ALPS NPO pending CT abdomen Full Code Problem List: 1. Scrotal swelling 2. Cellulitis, scrotum 3. Leta infection 4. Hydrocele 5. Spasticity 6. Multiple sclerosis 7. Blind Pain Ratin Pain Location: scrotum Pain Goal: Pain 4 or less Pain Plan: pathway Tomorrow's Labs & Rationales: cbc, bep, f/u wound cultures Alessandra Rosales 05/03/18 1112: Attending MD Review Statement Attending Statement Attending MD Statement: examined this patient, discuss w/resident/PA/BIOMETRICS HEAD, agreed w/resident/PA/BIOMETRICS HEAD, discussed with family, reviewed EMR data (avail), discussed with nursing, discussed with case mgmt, reviewed images, amended to note Attending Assessment/Plan: Agree with plan as above. ID and urology are following patient. Antibiotics have been titrated to iv unasyn as per ID recommendations. No obvious signs of gangrene on examination. Swelling has considerably improved albeit slowly. Patient c/o left lower quadrant pain with mild tenderness. 1 Episode of loose stool. Labs unremarkable. NPO. Obtain CT abd/pelvis with contrast. Follow ID recommendations and urology noted (scrotal edema without any etiology). Gibbons discontinue and initiate straight cath protocol. Continue current care..
--- NOTE | 2018-05-03 07:14 | PN- Urology ---
Subjective Subjective: Denies scrotal pain Objective Vital Signs and I&Os Vital Signs Date Time Temp Pulse Resp B/P B/P Pulse O2 O2 Flow FiO2 Mean Ox Delivery Rate 05/02 2253 98.4 94 18 153/93 95 Room Air 05/02 2213 94 153/93 05/02 1600 168/90 05/02 1446 102 176/100 05/02 1406 99.1 100 18 160/92 96 Room Air 05/02 0751 100 166/100 05/02 0750 100 166/100 Intake & Output 05/03 0000 05/02 1600 05/02 0805/02 0000 05/01 1600 Intake Total 1040 1760 1290 1110 1280 Output Total 1650 1800 1450 1200 450 Balance 1040 110 -1800 -160 -90 830 Intake, IV 381 368 7859 610 800 Intake, Oral 240 960 240 500 480 Number 1 1 0 1 Bowel Movements Output, Urine 1650 1800 1450 1200 450 Patient 209 lb Weight Abd: soft and non tender Genitalia: tucker in place. Mild urethral discharge. Scrotum still enlarged. Minimally improved since yesterday but significantly smaller than the day before. No tenderness. No erythema. No crepitance Laboratory Tests 05/03 0657 Chemistry Sodium Pending Potassium Pending Chloride Pending Carbon Dioxide Pending Anion Gap Pending BUN Pending Creatinine Pending BUN/Creatinine Ratio Pending Hematology CBC w Diff Pending WBC Pending RBC Pending Hgb Pending Hct Pending MCV Pending MCH Pending MCHC Pending RDW Pending Plt Count Pending MPV Pending Assessment/Plan Assessment/Plan Imp: 1. Scrotal edema. Unclear etiology. There is an entity of idiopathic scrotal edema. No objective signs or sx's of worsening scrotal cellulitis or Meng's at this point. Overall picture over last 3 days is of slow improvement 2. Urethritis due to tucker Plan: 1. Continue scrotal elevation 2. Agree with change in abx per ID 3. In view of urethritis would d/c tucker. Edema may make it difficult for him to void. If so would str cath q shift
[2018-05-03 08:26] LABS: ABSOLUTE BASOPHIL COUNT 0.1 /CUMM (0.0-0.2); ABSOLUTE EOSINOPHIL COUNT 0.2 /CUMM (0.0-0.7); ABSOLUTE GRANULOCYTE CT 5.9 /CUMM (1.4-6.5); ABSOLUTE LYMPH COUNT 2.1 /CUMM (1.2-3.4); ABSOLUTE MONOCYTE COUNT 0.9 /CUMM (0.10-0.60); BASOPHIL % 0.7 % (0.0-2.0); GRANULOCYTE % 64.9 % (42.2-75.2); HEMATOCRIT 31.6 % (42-52); MEAN CORPUSCULAR HGB 30.8 PG (27.0-31.0); MEAN CORPUSCULAR HGB CONC 33.6 G/DL (33.0-37.0); MEAN CORPUSCULAR VOLUME 91.4 FL (80.0-94.0); MEAN PLATELET VOLUME 8.7 FL (7.4-10.4); PLATELET COUNT 236 /CUMM (130-400); RBC DISTRIBUTION WIDTH 12.3 % (11.5-14.5); RED BLOOD CELL CT 3.46 /CUMM (4.70-6.10); WHITE BLOOD CELL COUNT 9.1 /CUMM (4.8-10.8)
[2018-05-03 10:30] VITALS: BP 168/88
--- NOTE | 2018-05-03 11:37 | PN- Infect Dx ---
Subjective Subjective: Afebrile without complaints. Objective Last 24 Hrs of Vital Signs/I&O Vital Signs Date Time Temp Pulse Resp B/P B/P Pulse O2 O2 Flow FiO2 Mean Ox Delivery Rate 05/03 1030 88 168/88 05/03 0926 85 180/90 05/03 0820 96 182/98 05/03 0819 98 182/98 05/03 0710 98.0 93 18 164/98 94 Room Air 05/02 2253 98.4 94 18 153/93 95 Room Air 05/02 2213 94 153/93 05/02 1600 168/90 05/02 1446 102 176/100 05/02 1406 99.1 100 18 160/92 96 Room Air Intake & Output 05/03 1600 05/03 0800 05/03 0000 Intake Total 1040 1760 Output Total 1650 Balance 1040 110 Intake, IV 800 800 Intake, Oral 240 960 Number 1 Bowel Movements Output, Urine 1650 Physical Exam Other Physical Findings: He appears comfortable in no acute distress Abdomen is obese, soft, nontender with positive bowel sounds marked scrotal edema persists, though decreased, with decreased erythema and no warmth or tenderness to palpation; mild inguinal candidiasis; Gibbons catheter remains in place Results Last 24 Hours of Lab Results: Laboratory Tests 05/03 0657 Chemistry Sodium (137 - 145 mmol/L) 139 Potassium (3.5 - 5.1 mmol/L) 4.1 Chloride (98 - 107 mmol/L) 110 H Carbon Dioxide (22 - 30 mmol/L) 23 Anion Gap (5 - 16) 6 BUN (9 - 20 mg/dL) 12 Creatinine (0.7 - 1.2 mg/dL) 0.6 L Estimated GFR (>60 ml/min) > 60 BUN/Creatinine Ratio (7 - 25 %) 20.0 Hematology CBC w Diff NO MAN DIFF REQ WBC (4.8 - 10.8 /CUMM) 9.1 RBC (4.70 - 6.10 /CUMM) 3.46 L Hgb (14.0 - 18.0 G/DL) 10.6 L Hct (42 - 52 %) 31.6 L MCV (80.0 - 94.0 FL) 91.4 MCH (27.0 - 31.0 PG) 30.8 MCHC (33.0 - 37.0 G/DL) 33.6 RDW (11.5 - 14.5 %) 12.3 Plt Count (130 - 400 /CUMM) 236 MPV (7.4 - 10.4 FL) 8.7 Gran % (42.2 - 75.2 %) 64.9 Lymphocytes % (20.5 - 51.1 %) 23.0 Monocytes % (1.7 - 9.3 %) 9.4 H Eosinophils % (0 - 5 %) 2.0 Basophils % (0.0 - 2.0 %) 0.7 Absolute Granulocytes (1.4 - 6.5 /CUMM) 5.9 Absolute Lymphocytes (1.2 - 3.4 /CUMM) 2.1 Absolute Monocytes (0.10 - 0.60 /CUMM) 0.9 H Absolute Eosinophils (0.0 - 0.7 /CUMM) 0.2 Absolute Basophils (0.0 - 0.2 /CUMM) 0.1 Last 24 Hours of Tl Results: Blood cultures 2 April 30/May 01 negative Assessment/Plan ID Impression: Persistent scrotal swelling, of unclear etiology, decreased from admission, with resolution of the erythema and with his temperatures and white blood cell count remaining normal since admission, now on Unasyn. Suggestion: 1. Remove Gibbons catheter and initiate straight cath protocol if needed per Urology 2. Continue Unasyn
--- NOTE | 2018-05-03 13:11 | CT SCAN REPORT ---
EXAMINATION: CT ABDOMEN AND PELVIS WITH CONTRAST CLINICAL INFORMATION: 32-year-old male with new onset of left lower quadrant pain. COMPARISON: 04/30/2018 TECHNIQUE: Multidetector volumetric imaging was performed of the abdomen and pelvis following IV administration of 95 mL of Optiray 320 intravenous contrast. Sagittal and coronal reformatted images were obtained on the technologist's workstation. DLP: 1135 mGy-cm FINDINGS: LUNG BASES: Compared to 04/30/2018, interval development of trace pleural effusions and atelectasis in dependent aspect of each lower lobe. LIVER, GALLBLADDER, AND BILIARY TREE: Unremarkable. PANCREAS: Unremarkable. SPLEEN: Unremarkable. ADRENAL GLANDS: Unremarkable. KIDNEYS AND URETERS: Kidneys are normal in size and enhance symmetrically. Again noted is a small cyst at the lower pole of the right kidney. No nephrolithiasis, hydronephrosis or perinephric edema. BLADDER: The bladder is decompressed by a Gibbons catheter. GASTROINTESTINAL TRACT: Stomach is unremarkable. Loops of bowel are normal in caliber. The appendix is normal. No evidence of acute inflammation or obstruction along the gastrointestinal tract. No ascites, pneumoperitoneum or abscess. ABDOMINAL WALL: Again noted are calcifications within subcutaneous tissues of the lower abdominal wall and gluteal areas, likely from prior subcutaneous injections. Scrotal edema is partially included in the [id number]. LYMPH NODES: Again noted is lymphadenopathy. The largest left para-aortic lymph node is 1.1 cm short axis dimension. The largest left and right external iliac lymph nodes measure up to 1.1 cm short axis dimension. Mild lymphadenopathy of the right and left inguinal regions, as well. A deep right inguinal lymph node is 1.2 cm short axis dimension. VASCULAR: Abdominal aorta is normal in caliber and the celiac trunk, SMA, IZZY and renal arteries are widely patent. PELVIC VISCERA: Prostate gland is grossly normal. No pelvic mass or free fluid. OSSEOUS STRUCTURES: Mild levocurvature of the lumbar spine. 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 IMPRESSION: 1. Trace bilateral pleural effusions and bibasilar atelectasis are new compared to 04/30/2018. 2. No acute abnormalities within the abdomen or pelvis compared to 04/30/2018. 3. The mild retroperitoneal, iliac and inguinal lymphadenopathy is unchanged. 4. Subcutaneous tissue edema of the scrotum is partially included in the [id number]. Please refer to findings on the exam from 04/30/2018.
[2018-05-03 13:34] VITALS: BP 144/98
[2018-05-03 15:21] VITALS: BP 168/104
--- NOTE | 2018-05-03 15:42 | CT SCAN REPORT ---
EXAMINATION: CT HEAD WITHOUT CONTRAST CLINICAL INFORMATION: Severe sudden headache. History of multiple sclerosis. COMPARISON: CT head 04/06/2012. MRI head 08/10/2016. TECHNIQUE: Contiguous axial imaging was performed from the skull base to vertex without intravenous administration of contrast. DLP: 628.54 mGy-cm FINDINGS: The sulci in the left supratentorial structures and left lateral ventricle are larger in size on the left compared to the right with slight midline shift from right to left measuring about 4 mm. These changes are chronic stable since the MR of 08/10/2016. There is no evidence of acute intracranial hemorrhage or acute territorial infarction. Cheema-white matter differentiation is preserved. There are no extra-axial collections. The osseous structures and soft tissues are normal. The mastoid air cells and visualized portions of the paranasal sinuses are well aerated. IMPRESSION: Asymmetric mild atrophy of the left hemisphere compared to the right remains similar to prior MR study 08/10/2016. There is no acute intracranial abnormality.
[2018-05-03 21:47] VITALS: BP 170/96
[2018-05-04 06:53] VITALS: BP 150/90
--- NOTE | 2018-05-04 07:09 | PN- Urology ---
Subjective Subjective: No distress Objective Vital Signs and I&Os Vital Signs Date Time Temp Pulse Resp B/P B/P Pulse O2 O2 Flow FiO2 Mean Ox Delivery Rate 05/04 0653 97.7 97 18 150/90 93 05/03 2147 98.0 84 17 170/96 94 Room Air 05/03 2110 84 170/96 05/03 1521 98.2 89 18 168/104 96 Room Air 05/03 1334 98.1 81 144/98 94 05/03 1030 88 168/88 05/03 0926 85 180/90 05/03 0820 96 182/98 05/03 0819 98 182/98 05/03 0710 98.0 93 18 164/98 94 Room Air Intake & Output 05/04 0805/04 0000 05/03 1600 05/03 0805/03 0000 05/02 1600 Intake Total 531 464 5257 1760 Output Total 1600 1250 1000 1200 1650 1800 Balance -1000 -760 -1000 -160 110 -1800 Intake, IV 200 10 800 800 Intake, Oral 400 480 240 960 Number 1 2 4 1 1 Bowel Movements Output, Urine 1600 1250 1000 1200 1650 1800 Patient 209 lb Weight Abd: soft and non tender Genitalia: tucker remains in place. Scrotum still edematous but appears to be improving slowly and steadily. Some desquamation of anterior scrotal skin. No significant erythema. No tenderness or crepitance Assessment/Plan Assessment/Plan Imp: 1. Scrotal edema. Improving. ? etiology. Possibly scrotal cellulitis improved with abx. Possible idiopathic scrotal edema. No objective signs of Meng's gangrene Plan: 1. Would remove tucker and str cath prn 2. Continue scrotal elevation 3. If ID agrees would complete a 1 week course of abx. I believe last day will be Monday and then stop abx 4. follow clinical exam
--- NOTE | 2018-05-04 07:20 | PN- Housestaff ---
Nata Richard 05/04/18 0720: Subjective Follow-up For: scrotal swelling/cellulitis Subjective: Patient was seen and examined at bedside. He looks visibly distressed. Father is at bedside. He reports that the patient has been having severe headaches since yesterday. Patient had a CT scan in the afternoon yesterday which came back normal. The headache was relieved by the night but it came back in the morning today. Pain is a 6 on 10 per the patient. His abdominal pain from yesterday is relieved. The father also reports that the patient has been having increasing spasticity and twitching in his right hand and. He also sees that the night yesterday the patient was relatively less responsive. He is concerned that his son is getting another MS attack as his presentations have been unusual if it has. The patient had an ice pack for his headache. He has not been eating and drinking well since morning. He just had a couple of bites on his breakfast, wherein he eats 2 sandwiches every day. However he said that he has no pain in his scrotal swelling. He denies fever, chills, chest pain, palpitations, diarrhea, vomiting overnight. Review of Systems Constitutional: Reports: see HPI. Objective Last 24 Hrs of Vital Signs/I&O Vital Signs Date Time Temp Pulse Resp B/P B/P Pulse O2 O2 Flow FiO2 Mean Ox Delivery Rate 05/04 1000 93 152/96 05/04 0959 93 152/96 05/04 0653 97.7 97 18 150/90 93 05/03 2147 98.0 84 17 170/96 94 Room Air 05/03 2110 84 170/96 05/03 1521 98.2 89 18 168/104 96 Room Air 05/03 1334 98.1 81 144/98 94 / 1030 88 168/88 Intake & Output 05/04 1600 05/04 0800 05/04 0000 Intake Total 600 490 Output Total 1600 1250 Balance -1000 -760 Intake, IV 200 10 Intake, Oral 400 480 Number 1 2 Bowel Movements Output, Urine 1600 1250 Physical Exam General Appearance: Alert, Oriented X3, Cooperative, Moderate Distress Skin: scrotal area covered in fungal dermatitis, some rash on the face Skin Temp/Moisture Exam: Warm/Dry Neck: Supple Cardiovascular: Regular Rate, Normal S1, Normal S2 Lungs: Clear to Auscultation Abdomen: Soft Neurological: spasticity 2+ on the right side with ?clonus spasticity 1+ on the right arm B/L lower limb spasticity: 3 Extremities: No Edema, Normal Pulses Assessment/Plan Assessment: Mr. 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 The swelling appears to have further improved with scrotal rugae visible. Erythema on the skin has improved a lot, no cracks or breaks in skin appreciated. No evidence of Meng's gangrene as of now. The scrotal area is still covered in fungal dermatitis. The patient has been consistently having high blood pressure readings with episodes of tachycardia. The patient no longer complains of abdominal pain. However he has an episode of onset severe 8 on [address] head was done promptly which is negative. The headache resolved into the day. However, it came back this morning rated as a 6 on 10 per the patient. The patient has increased spasticity in his bilateral lower limbs. He also has worsening of spasticity in his right arm with clonus as he tries to raise it. 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 Scrotal Cellulitis - scrotal elevation around the clock - ID input appreciated. will f/u recs -The swelling of the patient is a lot better today. We will continue IV Unasyn for now. - We will monitor the patient with frequent physical exams and watchout for the development of pain/numbness/fever/chills/ signs of systemic toxicity or any evidence suggestive of development of Meng's gangrene. - Prelimnary blood and urine cultures -ve. We will continue following them. -Urology input appreciated. Patient has developed urethritis possibly secondary to Gibbons use. Per urology discontinue Gibbons use. Straight cath the patient if he cannot void on his own. 2. Scrotal Fungal Dermatitis - We have Fluconazole per ID recommemdation -Daily application of Nystatin cream -We will ensure adequate hygeine is being maintained 3. Hypertension - The patient has been having consistently elevated blood pressure with increased HR - We will increase his Lisinopril from 20mg to 40mg - We will continue monitoring blood pressure and and heart rate and consider an EKG if it does not improve. 4. Multiple Sclerosis -We are holding in on Interferon B and Mycophenolate at the moment -Continue Prednisone 5mg - The patient has developed worsening spasticity in his legs. He has increased spassricity with clonus in his right upper arm. -We talked to for a neuro consult to rule out a possible MS exacerbation. - The patient is not eating and drinking well. We will consider starting him on fluids. -We will talk to dietery about getting him protein shakes with meals to maintain adequate nutrition. We will resume Carbemezapine for a possible partial seizure in the right arm. DVT prophylaxis Heparin SC + ALPS High protein diet Problem List: 1. Cellulitis, scrotum 2. Scrotal swelling 3. Leta infection 4. Hydrocele 5. Spasticity 6. Multiple sclerosis 7. History of - hypertension 8. Blind 9. Severe frontal headaches Pain Ratin Pain Location: frontal headache Pain Goal: Pain 4 or less Pain Plan: pathway Tomorrow's Labs & Rationales: cbc and bep Zachery Rosalesamanda 05/04/18 1102: Attending MD Review Statement Attending Statement Attending MD Statement: examined this patient, discuss w/resident/PA/MD OPHTHALMOLOGIST, agreed w/resident/PA/MD OPHTHALMOLOGIST, discussed with family, reviewed EMR data (avail), discussed with nursing, discussed with case mgmt, reviewed images, amended to note Attending Assessment/Plan: Agree as above. Patient c/o headache and twitches in hand with spasticity in legs. Consult neurology Dr Cisneros. Provide supportive care for now. Start carbamazepine and continue with baclofen. His scrotal swelling has significnatly improved over past few days. ID and urology continue to follow patient. Follow up cultures remain negative so far. Gibbons catheter can be discontinued and straight cath protocol initiated. GI/DVT prophylaxis full code.
[2018-05-04 08:01] LABS: ABSOLUTE BASOPHIL COUNT 0 /CUMM (0.0-0.2); ABSOLUTE EOSINOPHIL COUNT 0.2 /CUMM (0.0-0.7); ABSOLUTE GRANULOCYTE CT 6.1 /CUMM (1.4-6.5); ABSOLUTE LYMPH COUNT 1.9 /CUMM (1.2-3.4); ABSOLUTE MONOCYTE COUNT 0.9 /CUMM (0.10-0.60); BASOPHIL % 0.4 % (0.0-2.0); EOSINOPHIL % 1.9 % (0-5); GRANULOCYTE % 66.7 % (42.2-75.2); HEMATOCRIT 33.5 % (42-52); MEAN CORPUSCULAR HGB 30.8 PG (27.0-31.0); MEAN CORPUSCULAR HGB CONC 33.4 G/DL (33.0-37.0); MEAN PLATELET VOLUME 8.6 FL (7.4-10.4); PLATELET COUNT 270 /CUMM (130-400); RBC DISTRIBUTION WIDTH 12.5 % (11.5-14.5); RED BLOOD CELL CT 3.64 /CUMM (4.70-6.10); WHITE BLOOD CELL COUNT 9.1 /CUMM (4.8-10.8)
--- NOTE | 2018-05-04 12:33 | PN- Infect Dx ---
Subjective Subjective: Afebrile. He feels improved, with decreased headache. He has no pain in the scrotum. Objective Last 24 Hrs of Vital Signs/I&O Vital Signs Date Time Temp Pulse Resp B/P B/P Pulse O2 O2 Flow FiO2 Mean Ox Delivery Rate 05/04 1156 89 220/118 /03 1000 93 152/96 05/04 0959 93 152/96 / 0653 97.7 97 18 150/90 93 / 2147 98.0 84 17 170/96 94 Room Air 05/03 2110 84 170/96 05/03 1521 98.2 89 18 168/104 96 Room Air 05/03 1334 98.1 81 144/98 94 Intake & Output 05/04 1600 05/04 0800 05/04 0000 Intake Total 600 490 Output Total 500 1600 1250 Balance -500 -1000 -760 Intake, IV 200 10 Intake, Oral 400 480 Number 1 2 Bowel Movements Output, Urine 500 1600 1250 Physical Exam Other Physical Findings: He appears comfortable in no acute distress decreased scrotal edema, with resolution of the erythema and with no tenderness on palpation; persistent desquamation Results Last 24 Hours of Lab Results: Laboratory Tests 05/04 0700 Chemistry Sodium (137 - 145 mmol/L) 136 L Potassium (3.5 - 5.1 mmol/L) 4.3 Chloride (98 - 107 mmol/L) 106 Carbon Dioxide (22 - 30 mmol/L) 25 Anion Gap (5 - 16) 5 BUN (9 - 20 mg/dL) 13 Creatinine (0.7 - 1.2 mg/dL) 0.7 Estimated GFR (>60 ml/min) > 60 BUN/Creatinine Ratio (7 - 25 %) 18.6 Hematology CBC w Diff NO MAN DIFF REQ WBC (4.8 - 10.8 /CUMM) 9.1 RBC (4.70 - 6.10 /CUMM) 3.64 L Hgb (14.0 - 18.0 G/DL) 11.2 L Hct (42 - 52 %) 33.5 L MCV (80.0 - 94.0 FL) 92.0 MCH (27.0 - 31.0 PG) 30.8 MCHC (33.0 - 37.0 G/DL) 33.4 RDW (11.5 - 14.5 %) 12.5 Plt Count (130 - 400 /CUMM) 270 MPV (7.4 - 10.4 FL) 8.6 Gran % (42.2 - 75.2 %) 66.7 Lymphocytes % (20.5 - 51.1 %) 20.9 Monocytes % (1.7 - 9.3 %) 10.1 H Eosinophils % (0 - 5 %) 1.9 Basophils % (0.0 - 2.0 %) 0.4 Absolute Granulocytes (1.4 - 6.5 /CUMM) 6.1 Absolute Lymphocytes (1.2 - 3.4 /CUMM) 1.9 Absolute Monocytes (0.10 - 0.60 /CUMM) 0.9 H Absolute Eosinophils (0.0 - 0.7 /CUMM) 0.2 Absolute Basophils (0.0 - 0.2 /CUMM) 0 Last 24 Hours of Tl Results: Stool C. difficile May 03 pending Stool culture May 03 light growth of yeast Blood cultures 2 April 30/May 01 negative Recent Imaging Studies: CT of the head May [address] of the abdomen and pelvis May 03 no acute abnormalities within the abdomen or pelvis; subcutaneous tissue edema of the scrotum Assessment/Plan ID Impression: Improvement overall, with continued decrease in the scrotal edema and resolution of the scrotal erythema and with his temperatures and white blood cell count remaining normal on Unasyn, Day 4 of treatment for a probable scrotal cellulitis. His Gibbons catheter was removed this morning and he will need to be monitored for urinary retention, which would require straight catheterizations. He apparently had diarrhea yesterday, with a stool for C. difficile pending and with a stool culture positive for yeast, which presumably reflects his treatment with antibiotics. Suggestion: 1. Monitor for urinary retention, with straight catheterization if necessary 2. Continue scrotal elevation per Urology 3. Continue Unasyn until discharge, at which time can change to Augmentin 875 mg p.o. every 12 hours to complete a 7 day course of treatment Dr[address] Bourne will be covering over the weekend
--- NOTE | 2018-05-04 15:25 | RADIOLOGY REPORT ---
EXAMINATION: XR PORTABLE CHEST CLINICAL INFORMATION: Pulmonary edema versus pneumonia. Tachypnea, increased work of breathing, elevated blood pressure COMPARISON: 12/11/2014 TECHNIQUE: Portable frontal view of the chest was obtained. FINDINGS: Markedly limited evaluation due to suboptimal patient positioning with the patient's leaning significantly to the left. There is also hypoinflation. Increased density of the left lower chest, indeterminate. The right lung appears clear. No evidence of pneumothorax or pleural effusion. Heart size is normal. No acute osseous abnormality. IMPRESSION: Markedly limited evaluation. Recommend repeat views with the patient upright in full inspiration. Increased density of the left lower chest may be due to overlapping soft tissues, however a focal consolidation is not excluded.
[2018-05-04 16:00] VITALS: BP 200/118
[2018-05-04 16:30] VITALS: BP 168/58
[2018-05-05 06:56] VITALS: BP 180/100
--- NOTE | 2018-05-05 09:32 | PN- Urology ---
Subjective Subjective: Transferred to telemetry yesterday with fever of 101 and rapid heart rate. Currently resting comfortably with no complaints Failed void trial yesterday and tucker replaced with some difficulty for bladder scan of 650 cc Objective Vital Signs and I&Os Vital Signs Date Time Temp Pulse Resp B/P B/P Pulse O2 O2 Flow FiO2 Mean Ox Delivery Rate 05/05 0656 97.7 89 18 180/100 97 Room Air 05/05 0634 90 180/100 05/05 0000 Nasal 2.0L Cannula 05/04 2258 97.8 05/04 2257 108 18 93 Room Air 05/04 2031 73 138/70 05/04 1630 97.8 86 18 168/58 98 Nasal 2.0L Cannula 05/04 1600 101.0 120 28 200/118 94 Nasal 2.0L Cannula 05/04 1549 110 198/82 05/04 1156 89 220/118 05/04 1000 93 152/96 05/04 0959 93 152/96 Intake & Output 05/05 1600 05/05 0800 05/05 0000 05/04 1600 05/04 0800 05/04 0000 Intake Total 200 390 800 600 490 Output Total 1400 3498 705 2196 1250 Balance -1200 -1360 220 -1000 -760 Intake, IV 200 330 200 10 Intake, Oral 60 800 400 480 Number 3 0 1 2 Bowel Movements Output, Urine 1400 2975 240 1220 1250 Abd: non tender Genitalia: tucker in place. Mild urethritis. Appearance of scrotum is markedly improved. Size and edema much improved. No erthema or tenderness. Skin is intact Assessment/Plan Assessment/Plan Imp: 1. Severe scrotal edema, marked improvement with abx and scrotal elevation. Etiology not clear. Possible scrotal cellulitis vs idiopathic scrotal edema 2. Urinary retention 3. Mild urethritis from tucker Plan: 1. Would continue IV unasyn thru weekend to complete a 7 day course 2. Continue scrotal elevation 3. Start tamsulosin 0.4 mg qd 4. Will plan another void trial in 48 hours
--- NOTE | 2018-05-05 10:15 | PN- Housestaff ---
MariamfelibertoRaghavendra 05/05/18 1015: Subjective Follow-up For: Scrotal Swelling/Cellulitis, Sinus Tachy Tele-Events Since Last Visit: (last 24 hrs) NSR 73 - ST 122 Subjective: Pt seen and examined lying in bed. When seen in the morning, pt was doing well. No acute events overnight, no complaints. Pt denies any scrotal pain. Later in the afternoon, pt began complaining of headache 06/11 that was coming in waves. Oxycodone was given and within 1 hr pt's headache disappeared. Unclear whether it was pain meds or spontaneous resolution as pt and dad believe it was spontaneous and resolved too quickly within a matter of minutes from 06/11 down to 10/11. Review of Systems Constitutional: Reports: see HPI. Objective Last 24 Hrs of Vital Signs/I&O Vital Signs Date Time Temp Pulse Resp B/P B/P Pulse O2 O2 Flow FiO2 Mean Ox Delivery Rate 05/06 0834 94 184/110 / 0834 94 184/110 05/06 0833 94 184/110 / 0710 97.9 83 20 170/98 95 08/05 0633 92 170/110 /04 2205 98.6 112 22 160/98 93 08/04 2134 Room Air / 2108 96 156/74 08/04 1450 98.4 96 18 156/74 94 Room Air /04 1335 98 160/80 08/04 0927 98.0 104 16 180/98 / 0926 98.0 104 16 180/98 Intake & Output 05/06 1600 /05 0800 08 0000 Intake Total 650 480 Output Total 1150 900 Balance -500 -420 Intake, IV 250 Intake, Oral 400 480 Output, Urine 1150 900 Patient 222 lb Weight Physical Exam General Appearance: Alert, Oriented X3, Cooperative Skin Temp/Moisture Exam: Warm/Dry HEENT: Atraumatic Cardiovascular: Regular Rate, Normal S1, Normal S2 Lungs: Clear to Auscultation Abdomen: Soft, No Tenderness Neurological: Speech is at pt's baseline, No changes notes in pt's baseline neuro status Current Medications: Current Medications Sig/Erma Start time Last Medication Dose Route Stop Time Status Admin Acetaminophen 650 MG .STK-MED ONE 05/05 1625 DC PO 05/05 162 Acetaminophen 650 MG Q6P PRN 04/30 2100 AC 05/05 PO 1629 Amlodipine Besylate 10 MG DAILY 05/03 09 AC 05/06 PO 0633 Ampicillin Sodium/ 3,000 MG Q6 05/02 1800 AC 05/06 Sulbactam Sodium IV 0626 Sodium Chloride 100 ML Atorvastatin Calcium 20 MG DAILY 05/01 0900 AC 05/06 PO 0834 Baclofen 40 MG QAM 05/01 0900 AC 05/06 PO 0834 Baclofen 30 MG 1200,2100 04/30 2130 AC 05/05 PO 2107 Carbamazepine 600 MG BID 05/04 0930 AC 05/06 PO 0834 Carvedilol 12.5 MG BID 05/05 2100 AC 05/06 PO 0834 Carvedilol 6.25 MG BID 04/30 2100 DC 05/05 PO 0927 Heparin Sodium 5,000 UNIT Q8 04/30 2200 AC 05/06 (Porcine) SC 0626 Hydromorphone HCl 0.2 MG ONCE ONE 05/05 1815 DC IV 05/05 181 Interferon Beta 1b 0.3 MG MoWeFr@0900 05/07 0900 AC SC Lisinopril 40 MG DAILY 05/06 09 AC 05/06 PO 0833 Lisinopril 30 MG DAILY 05/04 0900 DC 05/05 PO 0634 Magnesium Chloride 64 MG BID 05/05 1404 AC 05/06 PO 0834 Magnesium Sulfate 1 GM Q2H 05/05 1415 CAN Dextrose/Water 100 ML IV 05/05 1814 Magnesium Sulfate 1 GM ONCE ONE 05/05 1415 DC 05/05 Dextrose/Water 100 ML IV 05/05 1514 1630 Nystatin 1 KYREE TID 05/01 1052 DC 05/05 TOP 1019 Oxycodone HCl 5 MG Q6H PRN 04/30 2100 AC 05/05 PO 1734 Prednisone 5 MG DAILY 05/06 0900 AC 05/06 PO 0834 Tamsulosin HCl 0.4 MG DAILY 05/05 1215 AC 05/06 PO 0834 Tizanidine HCl 2 MG QPM PRN 04/30 2130 AC PO Assessment/Plan Assessment: Assessment/Plan: Mr. 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 On tele dt hx of htn and tachy 1. Scrotal cellultis vs idiopathic scrotal edema - Scrotal swelling has improved with abx and elevation - Start tamsulosin per urology - Failed void trial - Continue Unasyn until D/C per ID 2. New onset headache - Likely unrelated to infection - Use pain management pathway - Consider consulting his neurologist 3. Unresponsive episode on - Possible Seizure activity per pt's neurologist - Continue Carbamzepine - Check levels - Start interferferon - Hold steroids Problem List: 1. Severe frontal headaches 2. Scrotal swelling 3. Cellulitis, scrotum Pain Ratin Pain Location: Headache Pain Goal: Remain pain free Pain Plan: Oxycodone, or IV tylenol Tomorrow's Labs & Rationales: BEP, CBC Connie,Manik 05/05/18 1123: Attending MD Review Statement Attending Statement Attending MD Statement: examined this patient, discuss w/resident/PA/SECTION SUPERVISOR, agreed w/resident/PA/SECTION SUPERVISOR, discussed with family, reviewed EMR data (avail), discussed with nursing, discussed with case mgmt, reviewed images, amended to note Attending Assessment/Plan: Agree as above. Patient was transferred yesterday to telemetry for tachycardia and uncontrolled hypertension. Consulted neurology Dr Cisneros who recommend possible seizure event which resolved and patient now back to baseline. Start interferon and hold off on steroids. C/w carbamazepine (levels wnl) and continue with baclofen. Increase lisinopril 40 mg daily and carvedilol to 12.5 bid. His scrotal swelling has significnatly improved over past few days. ID and urology continue to follow patient. Provide supportive care for now. Follow up cultures remain negative so far. Tucker catheter re inserted as difficult to straight cath. As per urology tucker can be d/antwan and void trial can be done. GI/DVT prophylaxis full code.
[2018-05-05 14:50] VITALS: BP 156/74
--- NOTE | 2018-05-05 19:49 | PN- Infect Dx ---
Subjective Subjective: This patient is a 32-year-old white male with multiple medical problems currently being treated for scrotal cellulitis. The patient had a fever spike of 1011 yesterday afternoon associated with a increase in his heart rate. The patient was transferred to telemetry for closer monitoring. Currently is complaining of a headache. His temperature has remained normal and cultures during the event are no growth to date. Review of Systems Neurological/Psychological: Reports: headache. Comments: 12 point review of system positives noted above Objective Last 24 Hrs of Vital Signs/I&O Vital Signs Date Time Temp Pulse Resp B/P B/P Pulse O2 O2 Flow FiO2 Mean Ox Delivery Rate 05/05 1450 98.4 96 18 156/74 94 Room Air 05/05 1335 98 160/80 05/05 0927 98.0 104 16 180/98 05/05 0926 98.0 104 16 180/98 05/05 0656 97.7 89 18 180/100 97 Room Air 05/05 0634 90 180/100 05/05 0000 Nasal 2.0L Cannula 05/04 2258 97.8 05/04 2257 108 18 93 Room Air 05/04 2031 73 138/70 Intake & Output 05/05 1600 05/05 0800 05/05 0000 Intake Total 200 390 Output Total 2600 1400 1750 Balance -2600 -1200 -1360 Intake, IV 200 330 Intake, Oral 60 Number 3 Bowel Movements Output, Urine 2600 1400 1750 Physical Exam General Appearance: well developed/nourished, alert, awake, anxious, mild distress Head: atraumatic Other Physical Findings: The patient is legally blind Neck supple no JVD no lymphadenopathy Lungs are clear to auscultation bilaterally Heart is regular rate and rhythm S1-S2 Abdomen is soft nontender nondistended No changes noted in his baseline neurologic status Results Last 24 Hours of Lab Results: Laboratory Tests 05/05 0725 Toxicology Carbamazepine (4.0 - 12.0 ug/mL) 6.7 Last 24 Hours of Tl Results: Microbiology Date/Time Procedure - Status Source Growth 05/04 1750 Blood Culture - RES BLOOD 05/04 1640 Urine Culture - RES URINE ROUT 05/04 1603 Blood Culture - RES BLOOD 05/04 1509 Blood Culture - CAN BLOOD Cancelled: SPECIMEN NOT RECEIVED IN LABORATORY 05/03 1250 Clostridium difficile Toxin A & B - RES STOOL 05/03 1250 Stool Culture - RES STOOL YEAST Assessment/Plan ID Impression: This patient is a 32-year-old white male with probable scrotal cellulitis. Continued decrease in the scrotal edema and resolution of the scrotal erythema and with his temperatures and white blood cell count remaining normal on Unasyn, Day 5 of treatment. His Gibbons catheter was replaced in January and why he developed the episodes yesterday. Suggestion: 1. Gibbons catheter followed per urology 2. Continue scrotal elevation per Urology 3. Continue Unasyn until discharge, at which time can change to Augmentin 875 mg p.o. every 12 hours to complete a 7 day course of treatment 4. Headache likely to be unrelated to infection.
--- NOTE | 2018-05-05 20:24 | Discharge Summary ---
Visit Information Visit Dates Admission Date: 04/30/18 Discharge Date: 05/08/2018 Hospital Course Course Attending Physician: Alessandra Rosales MD Primary Care Physician: [place]on MAR,[facility] Course: Mr. Duke is a 32yo M w/ PMH of MS on prednisone 5mg qd, blindness 2/2 optic nerve atrophy since age of 3, hx of undescended L testicle s/p surgery at childhood however no testicle was found, hx of urinary retention 4yr ago, presented to ER sent in by Dr. Cardona cc of scrotal elargement and pain x 2 days w/o hx of trauma/hx of urethral stricture. Mr. 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 PAtient was initially admitted to telemetry floor later transferred to telemetry for the management following issues; 1. Scrotal edema. Etiology not entirely clear. Was likely scrotal cellulitis 2. HTN 3. Hx of MS Testicular ultrasound on admission showed showed right-sided hydrocele. Urology and ID consults were obtained. patient was started on IV Unasyn for scrotal cellulitis(completed a seven-day course of antibiotics). Scrotal swelling was improved on discharge with abx and elevation. Patient was also started on tamsulosin per urology. Patient was also found to have urinary retention and a Gibbons was put in which was later discontinued and patient was given voiding trials without success. Patient was transferred to telemetry floor because of hypertensive urgency and tachycardia. Patient's blood pressure medications were adjusted (amlodipine 10mg daily, lisinopril increased to 40 mg daily and carvedilol increased to 25mg Bid) with stabilization of his blood pressure. Neurology consult was also obtained for concerns of MS exacerbation but was unlikely per neurology and patient's home medications were continued including prednisone 5 mg daily and interferon beta. Allergies: Coded Allergies: adhesive (BLISTERS 04/29/18) lactose (LACTOSE INTOLERANT 04/29/18) adhesive tape (Intermediate, BLISTERS - KERLIX IS USED AND TEGADERM OKAY ) Significant Procedures: CT ABD & PELVIS W IV CONTRAST IMPRESSION: 1. Marked scrotal swelling. Appropriate urological consultation and clinical correlation are requested. 2. 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 An ectopic testicle is not identified within the abdomen or pelvis. 3. Lymphadenopathy within the inguinal chains bilaterally as well as within the retroperitoneum. 4. Other nonacute findings as above. CT ABD & PELVIS W ORAL & IV CO 05/03/18 IMPRESSION: 1. Trace bilateral pleural effusions and bibasilar atelectasis are new compared to 04/30/2018. 2. No acute abnormalities within the abdomen or pelvis compared to 04/30/2018. 3. The mild retroperitoneal, iliac and inguinal lymphadenopathy is unchanged. 4. Subcutaneous tissue edema of the scrotum is partially included in the [id number]. Please refer to findings on the exam from 04/30/2018. CT HEAD WO IV CONTRAST IMPRESSION: Asymmetric mild atrophy of the left hemisphere compared to the right remains similar to prior MR study 08/10/2016. There is no acute intracranial abnormality. XRY-PORTABLE CHEST XRAY IMPRESSION: Markedly limited evaluation. Recommend repeat views with the patient upright in full inspiration. Increased density of the left lower chest may be due to overlapping soft tissues, however a focal consolidation is not excluded. Disposition Summary Disposition Principal Diagnosis: Presumed scrotal cellulitis, Additional Diagnosis: # [place] # HTN # Hx of MS Discharge Disposition: SNF Discharge Instructions General Discharge Information Code Status: Full Code Patient's Diet: Regular diet Patient's Activity: As tolerated Follow-Up Instructions/Appts: Patient instructed to follow-up with his primary care provider about this recent hospitalization. Patient also instructed to follow-up with his urologist within 1 week after discharge Medications at Discharge Discharge Medications: Stop taking the following medications: Amlodipine Besylate/Benazepril (Amlodipine-Benazepril 5-20 MG) 5 MG-20 MG CAPSULE ORAL DAILY Qty = 90 Carvedilol (Carvedilol) 6.25 MG TABLET ORAL TWICE DAILY Qty = 180 Continue taking these medications: Atorvastatin Calcium (Atorvastatin Calcium) 20 MG TABLET 1 Tablet ORAL DAILY Qty = 90 Comments: Last Taken: 05/08/18 Time: 9:00 AM Acetylcarnitine (Acetyl L-Carnitine) (Unknown Strength) CAPSULE 400 Milligram ORAL TWICE DAILY Comments: NOT GIVEN Calcium Carbonate (TUMS) (Unknown Strength) TAB.CHEW 2 Tablet ORAL DAILY Comments: NOT GIVEN Multivitamin-Min/Iron/FA/Vit K (Multi-Day Plus Minerals Tablet) 18 MG IRON-400 MCG-25 MCG TABLET 1 Tablet ORAL DAILY Comments: NOT GIVEN Acetaminophen (Acetaminophen) 500 MG TABLET 1 Tablet ORAL As Directed Comments: Last Taken: 05/07/18 Time: 8:00 PM Interferon Beta-1b (Betaseron) 0.3 MG KIT 0.3 Milligram SC MONDAY, MONDAY AND MONDAY Comments: Last Taken: 05/07/18 Time: 8:00 PM Baclofen (Baclofen) 10 MG TABLET 3 Tablet ORAL NOON & NIGHT Qty = 240 Comments: Last Taken: 05/08/18 Time: 12:30 AM Baclofen (Baclofen) 10 MG TABLET 4 Tablet ORAL Every Morning Comments: Last Taken: 05/08/18 Time: 9:00 AM Carbamazepine (Carbamazepine) 300 MG CPMP.12HR 2 Capsule ORAL TWICE DAILY Qty = 120 Comments: Last Taken: 05/08/18 Time: 9:00 AM Mycophenolate Mofetil (Mycophenolate Mofetil) 500 MG TABLET 1 Tablet ORAL TWICE DAILY Qty = 90 Comments: NOT GIVEN Prednisone (Prednisone) 5 MG TABLET 1 Tablet ORAL DAILY Qty = 30 Comments: Last Taken: 05/08/18 Time: 9:00 AM Propranolol HCl (Propranolol HCl) 20 MG TABLET 1 Tablet ORAL THREE TIMES DAILY Qty = 90 Comments: NOT GIVEN Tizanidine HCl (Zanaflex) 2 MG CAPSULE 1 Capsule ORAL Every night Qty = 90 Comments: NOT GIVEN Cholecalciferol (Vitamin D3) (Vitamin D) (Unknown Strength) CAPSULE Unknown Dose ORAL DAILY Comments: NOT GIVEN Biotin (Biotin) 300 MCG TABLET 1 Tablet ORAL DAILY Comments: NOT GIVEN Nystatin (Nystop) 100,000 UNIT/GRAM POWDER 1 Application TRANSDERM THREE TIMES DAILY Qty = 1 Comments: Last Taken: 05/08/18 Time: 4:15 AM Clotrimazole/Betamethasone Dip (Clotrimazole-Betamethasone Crm) 1 %-0.05 % CREAM..G. 1 Application On the skin THREE TIMES DAILY Qty = 15 Instructions: apply to affected area(s) Comments: NOT GIVEN Start taking the following new medications: Tamsulosin HCl (Flomax) 0.4 MG CAP.ER.24H 1 Tablet ORAL DAILY Qty = 30 No Refills Comments: Last Taken: 05/08/18 Time: 9:00 AM Carvedilol (Carvedilol) 25 MG TABLET 1 Tablet ORAL TWICE DAILY Qty = 60 No Refills Comments: Last Taken: 05/08/18 Time: 9:00 AM Amlodipine Besylate/Benazepril (Amlodipine-Benazepril 10-40 MG) 10 MG-40 MG CAPSULE 1 Capsule ORAL DAILY Qty = 30 No Refills Comments: Last Taken: 05/08/18 Time: 9:00 AM [facility] GIVEN [facility] Copies To: Harper MAR,Wenceslao Rowan.; Chidi MAR,Wenceslao Ortiz; [place] MAR,[place]
[2018-05-05 22:05] VITALS: BP 160/98
--- NOTE | 2018-05-06 06:40 | PN- Housestaff ---
Ger Corrales 05/06/18 0639: Subjective Follow-up For: Scrotal Swelling/Cellulitis, Sinus Tachy Complaints: no complaints Subjective: Pt seen and examined lying in bed. When seen in the morning, pt was doing well. No acute events overnight, no complaints. Pt denies any scrotal pain. Review of Systems Constitutional: Reports: see HPI. Objective Last 24 Hrs of Vital Signs/I&O Vital Signs Date Time Temp Pulse Resp B/P B/P Pulse O2 O2 Flow FiO2 Mean Ox Delivery Rate 05/06 2201 98.6 87 25 134/80 96 05/06 2003 102 158/90 05/06 2003 102 158/90 05/06 1649 92 130/74 05/06 1428 98.2 98 20 164/98 96 Room Air 05/06 1302 106 182/110 05/06 0834 94 184/110 05/06 0834 94 184/110 05/06 0833 94 184/110 / 0800 93 Room Air 05/06 0710 97.9 83 20 170/98 95 /05 0633 92 170/110 Intake & Output 05/06 1600 / 0800 / 0000 Intake Total 1046 650 480 Output Total 3500 1150 900 Balance -2454 -500 -420 Intake, IV 100 250 Intake, Oral 946 400 480 Output, Urine 3500 1150 900 Patient 222 lb Weight Physical Exam General Appearance: Alert, Oriented X3, Cooperative, No Acute Distress Cardiovascular: Regular Rate, No Murmurs Lungs: Clear to Auscultation, Normal Air Movement Abdomen: Normal Bowel Sounds, Soft, No Tenderness, No Hepatospenomegaly, No Masses Neurological: Normal Speech, Strength at 5/5 X4 Ext, Normal Tone, Sensation Intact Extremities: No Clubbing, No Cyanosis, No Edema, Normal Pulses, No Tenderness/ Swelling Current Medications: Current Medications Sig/Erma Start time Last Medication Dose Route Stop Time Status Admin Acetaminophen 650 MG Q6P PRN 04/30 2100 AC 05/05 PO 1629 Amlodipine Besylate 10 MG DAILY 05/03 09 AC 05/06 PO 0633 Ampicillin Sodium/ 3,000 MG Q6 05/02 1800 AC 05/06 Sulbactam Sodium IV 2308 Sodium Chloride 100 ML Atorvastatin Calcium 20 MG DAILY 05/01 09 AC 05/06 PO 0834 Baclofen 40 MG QAM 05/01 0900 AC 05/06 PO 0834 Baclofen 30 MG 1200,2100 04/30 2130 AC 05/06 PO 2002 Carbamazepine 600 MG BID 05/04 0930 AC 05/06 PO 2002 Carvedilol 25 MG BID 05/06 2100 AC 05/06 PO 2002 Carvedilol 12.5 MG ONCE ONE 05/06 1245 DC 05/06 PO 05/06 1246 1302 Carvedilol 12.5 MG BID 05/05 2100 DC 05/06 PO 0834 Heparin Sodium 5,000 UNIT Q8 04/30 2200 AC 05/06 (Porcine) SC 2003 Interferon Beta 1b 0.3 MG MoWeFr@0900 05/07 0900 AC SC Lisinopril 40 MG BID 05/06 2100 AC 05/06 PO 2002 Lisinopril 40 MG DAILY 05/06 0900 DC 05/06 PO 0833 Magnesium Chloride 64 MG BID 05/05 1404 AC 05/06 PO 2003 Oxycodone HCl 5 MG Q6H PRN 04/30 2100 AC 05/05 PO 1734 Prednisone 5 MG DAILY 05/06 0900 AC 05/06 PO 0834 Tamsulosin HCl 0.4 MG DAILY 05/05 1215 AC 05/06 PO 0834 Tizanidine HCl 2 MG QPM PRN 04/30 2130 AC PO Last 24 Hrs of Lab/Tl Results Last 24 Hrs of Labs/Mics: Laboratory Tests 05/06/18 0847: Magnesium 1.7 Assessment/Plan Assessment: Mr. 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 On tele dt hx of htn and tachy 1. Scrotal cellultis , scrotal edema - Scrotal swelling has improved with abx and elevation - Start tamsulosin per urology - Failed void trial yesterday - As per ID, Dr. Bourne, Continue Unasyn until discharge, at which time can change to Augmentin 875 mg p.o. every 12 hours to complete a 7 day course of treatment 2. Dr Rosales Consulted Neurology Dr Cisneros for MS who recommend possible seizure event which resolved. Continue interferon and hold off on steroids.C/w carbamazepine (levels wnl) and continue with baclofen 3. Hypertension : on Amlodipine, Increase lisinopril 40 mg daily to bid and carvedilol to 12.5 bid to 25 bid Do not DC the Tucker until 05/07/18 Problem List: 1. History of - hypertension 2. Cellulitis, scrotum Pain Ratin Pain Location: scrotum Pain Goal: Remain pain free Pain Plan: teyenol Tomorrow's Labs & Rationales: BEP, Magnesium Connie,Zacheryik 05/06/18 1136: Attending MD Review Statement Attending Statement Attending MD Statement: examined this patient, discuss w/resident/PA/COIN MACHINE ASSEMBLER, agreed w/resident/PA/COIN MACHINE ASSEMBLER, discussed with family, reviewed EMR data (avail), discussed with nursing, discussed with case mgmt, reviewed images, amended to note Attending Assessment/Plan: Patient with pmh of MS and being treated for scrotal cellulitis with iv abx now on telemetry for tachycardia and uncontrolled hypertension. Appreciate Neurology Dr Cisneros for MS who recommend possible seizure event which resolved. Continue interferon and hold off on steroids. C/w carbamazepine (levels wnl) and continue with baclofen. Hypertension uncontrolled: on Amlodipine, Increase lisinopril 40 mg daily to bid and carvedilol to 12.5 bid to 25 bid. His scrotal swelling has significnatly improved over past few days. ID and urology continue to follow patient. Provide supportive care for now. Follow up cultures remain negative so far. Tucker catheter re inserted as difficult to straight cath. Tucker care as per urology. Contnue with tucker catheter. GI/DVT prophylaxis full code.
[2018-05-06 07:10] VITALS: BP 170/98
--- NOTE | 2018-05-06 09:04 | PN- Urology ---
Subjective Subjective: No distress Objective Vital Signs and I&Os Vital Signs Date Time Temp Pulse Resp B/P B/P Pulse O2 O2 Flow FiO2 Mean Ox Delivery Rate 05/06 0834 94 184/110 / 0834 94 184/110 05/06 0833 94 184/110 / 0710 97.9 83 20 170/98 95 05/06 0633 92 170/110 / 2205 98.6 112 22 160/98 93 05/05 2134 Room Air 05/05 2108 96 156/74 05/05 1450 98.4 96 18 156/74 94 Room Air 05/05 1335 98 160/80 05/05 0927 98.0 104 16 180/98 05/05 0926 98.0 104 16 180/98 Intake & Output 05/06 0000 05/05 1600 05/05 0000 Intake Total 856 924 2281 200 390 Output Total 0237 559 1829 1400 1750 Balance -500 -420 -1340 -1200 -1360 Intake, IV 250 200 330 Intake, Oral 007 622 1969 60 Number 3 Bowel Movements Output, Urine 8236 574 2634 1400 1750 Patient 222 lb Weight Abd: soft and non tender Genitalia: tucker in place. Some mild urethritis. Scrotum continues to decrease in size. No erythema. No open wounds. No tenderness or crepitence Assessment/Plan Assessment/Plan Imp: 1. Scrotal edema. Markedly improved over the last several days. ? due to scrotal cellulitis vs idiopathic scrotal edema 2. Urinary retention 3. Urethritis from tucker Plan: 1. Continue scrotal elevation 2. Continue tamsulosin 3. If ID agrees would stop antibiotics tomorrow 4. Would remove tucker tomorrow AM and check pvr by bladder scan
[2018-05-06 14:28] VITALS: BP 164/98
[2018-05-06 16:49] VITALS: BP 130/74
--- NOTE | 2018-05-06 18:48 | PN- Infect Dx ---
Subjective Subjective: This patient is a 32-year-old white male with multiple medical problems currently being treated for scrotal cellulitis. The patient has remained afebrile over the past 24 hours. The patient was transferred to telemetry for closer monitoring but is doing much better. Yesterday's headache resolved with residual side effects in fact the patient's father says he's better than ever. Cultures from May 04 remain negative. Review of Systems Constitutional: Reports: see HPI. Objective Last 24 Hrs of Vital Signs/I&O Vital Signs Date Time Temp Pulse Resp B/P B/P Pulse O2 O2 Flow FiO2 Mean Ox Delivery Rate 05/06 1649 92 130/74 08/ 1428 98.2 98 20 164/98 96 Room Air 05/06 1302 106 182/110 / 0834 94 184/110 / 0834 94 184/110 / 0833 94 184/110 / 0800 93 Room Air / 0710 97.9 83 20 170/98 95 /05 0633 92 170/110 /04 2205 98.6 112 22 160/98 93 /04 2134 Room Air 05/05 2108 96 156/74 Intake & Output / 1600 08/05 0800 08/05 0000 Intake Total 1046 650 480 Output Total 3500 1150 900 Balance -2454 -500 -420 Intake, IV 100 250 Intake, Oral 946 400 480 Output, Urine 3500 1150 900 Patient 222 lb Weight Physical Exam Other Physical Findings: Awake alert and oriented 3 Patient is blind with no baseline change Neck is supple no JVD no lymphadenopathy Heart is regular rate and rhythm S1-S2 Lungs are clear to auscultation bilaterally Abdomen soft nontender nondistended Scrotum continues to decrease in swelling. No erythema noted. Results Last 24 Hours of Lab Results: Laboratory Tests 05/06 08 Chemistry Magnesium (1.6 - 2.3 mg/dL) 1.7 Last 24 Hours of Tl Results: Microbiology Date/Time Procedure - Status Source Growth 05/04 1750 Blood Culture - RES BLOOD 05/04 1640 Urine Culture - COMP URINE ROUT 05/04 1603 Blood Culture - RES BLOOD 05/04 1509 Blood Culture - CAN BLOOD Cancelled: SPECIMEN NOT RECEIVED IN LABORATORY Recent Imaging Studies: No new studies Assessment/Plan ID Impression: This patient is a 32-year-old white male with probable scrotal cellulitis. Continued decrease in the scrotal edema and resolution of the scrotal erythema. His temperatures and white blood cell count remaining normal on Unasyn, Day 6 of treatment. His Gibbons catheter was remains in place. Suggestion: 1. Gibbons catheter followed per urology 2. Continue scrotal elevation per Urology 3. Continue Unasyn until discharge, at which time can change to Augmentin 875 mg p.o. every 12 hours to complete a 7 day course of treatment
[2018-05-06 22:01] VITALS: BP 134/80
[2018-05-07 06:00] VITALS: BP 162/80
--- NOTE | 2018-05-07 07:23 | PN- Urology ---
Subjective Subjective: No complaints. Uneventful day yesterday Objective Vital Signs and I&Os Vital Signs Date Time Temp Pulse Resp B/P B/P Pulse O2 O2 Flow FiO2 Mean Ox Delivery Rate 05/07 0645 97.8 05/07 06 90 22 162/80 95 Room Air 05/06 2201 98.6 87 25 134/80 96 05/06 2003 102 158/90 05/06 2003 102 158/90 05/06 1649 92 130/74 08/ 1428 98.2 98 20 164/98 96 Room Air 05/06 1302 106 182/110 05/06 0834 94 184/110 05/06 0834 94 184/110 05/06 0833 94 184/110 05/06 0800 93 Room Air Intake & Output 05/07 0000 05/06 1600 05/06 0000 05/05 1600 Intake Total 892 074 4303 271 368 2144 Output Total 550 1000 3500 9920 973 1703 Balance 30 -40 -2454 -500 -420 -1340 Intake, IV 100 100 250 Intake, Oral 480 960 946 925 540 1364 Number 0 0 Bowel Movements Output, Urine 550 1000 3500 4148 069 [id number] Patient 222 lb 222 lb Weight Genitalia: tucker in place with mild urethral discharge. Small amount of scrotal edema persists but continues to improve. Skin intact. No erythema. Laboratory Tests 05/07 05/06 0633 0847 Chemistry Sodium Pending Potassium Pending Chloride Pending Carbon Dioxide Pending Anion Gap Pending BUN Pending Creatinine Pending BUN/Creatinine Ratio Pending Magnesium (1.6 - 2.3 mg/dL) Pending 1.7 Urine culture negative Assessment/Plan Assessment/Plan Imp: 1. Scrotal edema. Continues to improve. Etiology unclear, ? scrotal cellulitis vs idiopathic scrotal edema 2. Urinary retention 3. Urethritis from tucker Plan: 1. Would remove tucker today and check pvr by bladder scan 2. If ID agrees would d/c abx as he has gotten a 1 week course 3. Continue tamsulosin 4. Continue scrotal elevation
--- NOTE | 2018-05-07 08:05 | PN- Housestaff ---
Arnaud Ace 05/07/18 0805: Subjective Follow-up For: Scrotal Swelling/Cellulitis Multiple sclerosis Tele-Events Since Last Visit: Normal sinus rhythm Subjective: Patient seen resting comfortably in the bed. He reports feeling improved from the weekend, denies headache, also reports subjectively slightly improved vision. Reports feeling less scrotal swelling, denies fever/chills. Review of Systems Constitutional: Denies: chills, diaphoresis, fever, malaise. Objective Last 24 Hrs of Vital Signs/I&O Vital Signs Date Time Temp Pulse Resp B/P B/P Pulse O2 O2 Flow FiO2 Mean Ox Delivery Rate 05/07 645 97.8 05/07 06 90 22 162/80 95 Room Air 05/06 2201 98.6 87 25 134/80 96 05/06 2003 102 158/90 05/06 2003 102 158/90 05/06 1649 92 130/74 05/06 1428 98.2 98 20 164/98 96 Room Air 05/06 1302 106 182/110 05/06 0834 94 184/110 05/06 0834 94 184/110 05/06 0833 94 184/110 Intake & Output 05/07 1600 06 0800 05/07 0000 Intake Total 580 960 Output Total 550 1000 Balance 30 -40 Intake, IV 100 Intake, Oral 480 960 Number 0 0 Bowel Movements Output, Urine 550 1000 Patient 100.868 kg Weight Physical Exam General Appearance: Alert, Oriented X3, Cooperative, No Acute Distress HEENT: Atraumatic, Mucous Membr. moist/pink Neck: Supple, No JVD Cardiovascular: Regular Rate, Normal S1, Normal S2, No Murmurs Lungs: Clear to Auscultation, Normal Air Movement Abdomen: Normal Bowel Sounds, Soft, No Tenderness Reproductive (MALE) Swollen scrotum, erythematous inguinal region where scrotum contacts thighs Current Medications: Current Medications Sig/Erma Start time Last Medication Dose Route Stop Time Status Admin Acetaminophen 650 MG Q6P PRN 04/30 2100 AC 05/05 PO 1629 Amlodipine Besylate 10 MG DAILY 05/03 09 AC 05/06 PO 0633 Ampicillin Sodium/ 3,000 MG Q6 05/02 1800 AC 05/07 Sulbactam Sodium IV 0543 Sodium Chloride 100 ML Atorvastatin Calcium 20 MG DAILY 05/01 900 AC 05/06 PO 0834 Baclofen 40 MG QAM 05/01 0900 AC 05/06 PO 0834 Baclofen 30 MG 1200,2100 04/30 2130 AC 05/06 PO 2002 Carbamazepine 600 MG BID 05/04 0930 AC 05/06 PO 2002 Carvedilol 25 MG BID 05/06 2100 AC 05/06 PO 2002 Carvedilol 12.5 MG ONCE ONE 05/06 1245 DC 05/06 PO 05/06 1246 1302 Carvedilol 12.5 MG BID 05/05 2100 DC 05/06 PO 0834 Heparin Sodium 5,000 UNIT Q8 04/30 2200 AC 05/07 (Porcine) SC 0543 Interferon Beta 1b 0.3 MG MoWeFr@0900 05/07 0900 AC SC Lisinopril 40 MG BID 05/06 2100 AC 05/06 PO 2002 Lisinopril 40 MG DAILY 05/06 09 DC 05/06 PO 0833 Magnesium Chloride 64 MG BID 05/05 1404 AC 05/06 PO 2003 Oxycodone HCl 5 MG Q6H PRN 04/30 2100 AC 05/05 PO 1734 Prednisone 5 MG DAILY 05/06 0900 AC 05/06 PO 0834 Tamsulosin HCl 0.4 MG DAILY 05/05 1215 AC 05/06 PO 0834 Tizanidine HCl 2 MG QPM PRN 04/30 2130 AC PO Last 24 Hrs of Lab/Tl Results Last 24 Hrs of Labs/Mics: Laboratory Tests 05/07/18 0633: Sodium Pending, Potassium Pending, Chloride Pending, Carbon Dioxide Pending, Anion Gap Pending, BUN Pending, Creatinine Pending, BUN/Creatinine Ratio Pending , Magnesium Pending 05/06/18 0847: Magnesium 1.7 Assessment/Plan Assessment: Mr. 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 1. Scrotal swelling 2. Cellulitis 3. HTN - Scrotal swelling has improved with abx and elevation - Start tamsulosin per urology - D/C tucker per urology, trial voiding with bladder scans - D/C unasyn, follow-off abx - Continue interferon and hold off on steroids. - C/w carbamazepine (levels wnl) and continue with baclofen - On amlodipine, continue lisinopril 40 mg daily bid and carvedilol 25mg Bid Problem List: 1. Cellulitis, scrotum 2. Severe headache 3. Scrotal swelling 4. Hydrocele 5. Urinary retention 6. Disorder of optic nerve 7. Multiple sclerosis 8. History of - hypertension Pain Ratin Pain Location: none Pain Goal: Pain 4 or less Pain Plan: per pathway Tomorrow's Labs & Rationales: bep mag Andrew MAR,Francisco Jhaydeebrody 05/07/18 1119: Attending MD Review Statement Attending Statement Attending MD Statement: examined this patient, discuss w/resident/PA/JUVENILE CORRECTIONS OFFICER, agreed w/resident/PA/JUVENILE CORRECTIONS OFFICER, discussed with family, reviewed EMR data (avail), discussed with nursing, discussed with case mgmt, amended to note Attending Assessment/Plan: Patient seen and examined. Resting comfortably not in any acute distress. No issues overnight reported by nursing staff. No events on telemetry monitoring. Patient offers no complaints today. Father is present at the bedside. He remains afebrile and hemodynamically stable. ID follow-up appreciated. Will discontinue further antibiotic therapy. Tucker catheter will be removed today and a voiding trial attempted. If patient does well overnight he may be discharged home tomorrow morning. Blood pressure medications were initially decreased in dose from an admission. Blood pressure then became elevated. His medications have not been readjusted back to his home dose. Blood pressure is not improved. We will continue to monitor.
--- NOTE | 2018-05-07 10:22 | PN- Infect Dx ---
Subjective Subjective: Afebrile without complaints Objective Last 24 Hrs of Vital Signs/I&O Vital Signs Date Time Temp Pulse Resp B/P B/P Pulse O2 O2 Flow FiO2 Mean Ox Delivery Rate 05/07 645 97.8 05/07 600 90 22 162/80 95 Room Air 05/06 2201 98.6 87 25 134/80 96 05/06 2003 102 158/90 05/06 2003 102 158/90 05/06 1649 92 130/74 05/06 1428 98.2 98 20 164/98 96 Room Air 05/06 1302 106 182/110 Intake & Output 05/07 1600 05/07 0805/07 0000 Intake Total 580 960 Output Total 550 1000 Balance 30 -40 Intake, IV 100 Intake, Oral 480 960 Number 0 0 Bowel Movements Output, Urine 550 1000 Patient 222 lb Weight Physical Exam Other Physical Findings: He appears comfortable in no acute distress Lungs are clear Heart regular rhythm no murmur marked decrease in the scrotal edema, with no erythema or tenderness; urethral discharge noted, with a Gibbons catheter in place Results Last 24 Hours of Lab Results: Laboratory Tests 05/07 633 Chemistry Sodium (137 - 145 mmol/L) 136 L Potassium (3.5 - 5.1 mmol/L) 4.3 Chloride (98 - 107 mmol/L) 108 H Carbon Dioxide (22 - 30 mmol/L) 23 Anion Gap (5 - 16) 5 BUN (9 - 20 mg/dL) 20 Creatinine (0.7 - 1.2 mg/dL) 0.6 L Estimated GFR (>60 ml/min) > 60 BUN/Creatinine Ratio (7 - 25 %) 33.3 H Magnesium (1.6 - 2.3 mg/dL) 1.6 Last 24 Hours of Tl Results: Blood cultures x2 May 04 negative Urine culture May 04 negative Recent Imaging Studies: Chest x-ray May 04 negative Assessment/Plan ID Impression: Continues to improve, with a marked decrease in his scrotal edema and resolution of the scrotal erythema, and with his temperatures and white blood cell count remaining normal on Unasyn, Day 7 of treatment for a presumed scrotal cellulitis. The significance of the fever several days ago is unclear with no further fevers recorded. His Gibbons catheter was removed 3 days ago but had to be replaced later in the day, with plans for another voiding trial today. He does have a mild urethral discharge, which, hopefully, will clear with removal of the Gibbons. Suggestion: 1. Remove Gibbons catheter and attempt another voiding trial per Urology 2. Topical treatment for the urethral discharge 3. Discontinue Unasyn and follow off antibiotics
--- NOTE | 2018-05-07 11:45 | PN- Student ---
Subjective Subjective: CC: Scrotal swelling HPI: 32 y/o male with a PMH of MS on Prednisone, CKD, HTN, Blindness 2 /2 optic nerve atrophy, and urinary retention for four years presented to the Emergency room 04/29/18 after being sent in by Dr. Cardona for painful scrotal swelling for two days. US revealed a right hydrocele and potential cellulitis without testicular torsion. Patient was sent home with topical fungal cream only. The next day, 04/30/18, the scrotal swelling progressed and doubled in size , which prompted a return to the ER with his father, who provides the majority of the history. The patient was admitted to general medicine for scrotal swelling/cellulitis on 04/30/10 and put on empiric antibiotic therapy with IV Vancomycin/Zosyn/Fluconazole which was later changed to IV Unasyn per Dr. Anglin. The patient was then transferred to Cardiology 05/04/18 for uncontrolled hypertension, tachycardia, headache, and an episode of becoming unresponsive. This past weekend, the patient had an episode of headache for three hours on Monday that did not respond to Tylenol or Roxicodone. The patient was offered Dilaudid but refused. The headache resolved spontaneously. There were no other events over the weekend. This morning, the patient was interviewed and examined at bedside. The patient appeared in well and denied headaches as well as any pain at all. Patient replied "good" when asked if he was both eating and sleeping well. The patient denies fevers, chills, nightsweats, dizziness, chest pain, palpitations, shortness of breath, and abdominal pain. PMH: Multiple Sclerosis Chronic Kidney Disease Hypertension Blindness Urinary retention Cryptorchidism of Left testicle Surgical History: Testicular surgery for undescended testicle in childhood. No testicle was found Family History: Non-contributory Social History: Lives with parents Denies any Tobacco use Denies any Alcohol use Denies any Illicit drug use Current Medications Interferon Beta-1b 0.3mg SC Lisinopril 40mg PO BID Carvedilol 25mg PO BID Prednisone 5mg PO QD Magnesium Chloride 64mg PO BID Tamsulosin 0.4mg PO QD Carbamazepine 600mg PO BID Amlodipine 10mg PO QD Unasyn 3g IV Q6hr Baclofen 40mg PO QAM Baclofen 30mg PO QPM and QHS Atorvastatin 20mg PO QD Heparin 5000units SC Q8hr Tizanidine HCl 2mg PO QPM PRN Oxycodone HCl 5mg PO Q6hr PRN Acetaminophen 650mg PO Q6hr PRN Allergies: Lactose - Lactose intolerance Adhesive tape - Blisters (Tegaderm is okay) Objective Objective: Vital Signs Date Time Temp Pulse Resp B/P B/P Pulse O2 O2 Flow FiO2 Mean Ox Delivery Rate 05/07 1019 91 162/82 05/07 1019 91 162/82 05/07 1018 91 162/82 05/07 1018 91 162/82 05/07 0645 97.8 05/07 0600 90 22 162/80 95 Room Air 05/06 2201 98.6 87 25 134/80 96 05/06 2003 102 158/90 05/06 2003 102 158/90 05/06 1649 92 130/74 05/06 1428 98.2 98 20 164/98 96 Room Air 05/06 1302 106 182/110 Intake & Output 05/07 1600 05/07 0800 05/07 0000 Intake Total 580 960 Output Total 550 1000 Balance 30 -40 Intake, IV 100 Intake, Oral 480 960 Number 0 0 Bowel Movements Output, Urine 550 1000 Patient 222 lb Weight Physical Exam: General: NAD; Alert and Oriented x3; Appropriately responsive Skin: Warm; Dry; Scrotum and inguinal region have fungal dermatitis but improving HEENT: Normocephalic; Atraumatic; No tracheal deviation noted Lungs: Clear to auscultation bilaterally with an anterior and lateral approach Heart: Normal S1 and S2; No murmurs, gallops, or rubs noted upon ausculatation with diaphragm Abdomen: No visible distention; Normoactive bowel sounds in all four quadrants; Non-tender to palpation Extremities: Normal pulses; No edema noted Assessment/Plan Assessment: 32 y/o male with a PMH of MS on Prednisone, CKD, Urinary retention, HTN, cryptorchidism of left testicle, and Blindness 2/2 optic nerve atrophy for four years presented to the ER with painful scrotal swelling for three days. Patient was admitted to [facility] for painful scrotal swelling 04/30/18 and transferred to Cardiology 05/04/18 for uncontrolled HTN, tachycardia, and an episode of becoming unresponsive. Plan: Scrotal Cellulitis 24/04 Scrotal elevation D/C Unasyn per Urology as it has been 7 days of treatment if okay with Infectious disease No growth on Blood or Urine cultures x2 days Will monitor patient with frequent physical exams Scrotal Fungal Dermatitis Daily application of Nystatin cream Urinary Retention Tamsulosin 0.4mg PO QD Will remove Gibbons catheter today and monitor for urinary retention. Straight cath PRN Hypertension Lisinopril 40mg PO BID Carvedilol 25mg PO BID Amlodipine 10mg PO QD PMH of Multiple Sclerosis Prednisone 5mg PO QD Interferon Beta-1b 0.3mg SC Unresponsive episode Monday Possible seizure activity per Dr. Murillo Carbamazepine 600mg PO BID --> Current blood level WNL @ 6.7ug/mL New Onset Headache Follow pain management pathway DVT Prophylaxis Heparin 5000units SC Q8hr Full code
--- NOTE | 2018-05-07 14:50 | Event Note ---
Event Note Event Note: S: On May 04, around 2 o'clock, we were called in by the nurse to assess the patient for his unstable vitals. B: The patient with past medical history of MS and hypertension was admitted to the floor for scrotal swelling/cellulits which was progressively improving. A: I went in and assessed the patient, his blood pressure was 200/118, and a HR of about 140. We did an EKG on him which showed sinus tachcycardia. He became unresponsive over the next one hour, initially being able to prompt by raising his hand, but later not being able to respond at all. R: After discussion with and , the patient was transferred to the [facility] unit for further management of hypertension and tachycardia.
[2018-05-07 15:03] VITALS: BP 132/78
[2018-05-07 23:34] VITALS: BP 150/80
--- NOTE | 2018-05-08 05:49 | PN- Housestaff ---
Arnaud Ace 05/08/18 0549: Subjective Follow-up For: Scrotal Swelling/Cellulitis Multiple sclerosis Tele-Events Since Last Visit: Normal sinus rhythm overnight Subjective: Patient seen resting comfortably in the bed. In no acute distress. Patient reports he has been urinating regularly, with approximately 150 cc into the urinal each void. Overnight, no acute events but this morning had difficulty ambulating to the bathroom and required assistance. He denies fever, dizziness, nausea. Review of Systems Constitutional: Denies: chills, fever, malaise. Objective Last 24 Hrs of Vital Signs/I&O Vital Signs Date Time Temp Pulse Resp B/P B/P Pulse O2 O2 Flow FiO2 Mean Ox Delivery Rate 05/08 0653 98.0 86 20 150/80 96 Room Air 05/07 2334 98.9 86 20 150/80 94 Room Air 05/07 2012 92 134/70 05/07 2011 92 134/70 05/07 1503 98.1 87 20 132/78 97 Room Air 05/07 1019 91 162/82 05/07 1019 91 162/82 05/07 1018 91 162/82 05/07 1018 91 162/82 Intake & Output 05/08 0800 05/08 0000 05/07 1600 Intake Total 120 120 650 Output Total 054 661 5185 Balance -430 -230 -800 Intake, Oral 120 120 650 Output, Urine 926 271 5036 Physical Exam General Appearance: Alert, Oriented X3, Cooperative, No Acute Distress Neck: Supple, No JVD, +2 Carotid Pulse wo Bruit Cardiovascular: Regular Rate, Normal S1, Normal S2, No Murmurs Lungs: Clear to Auscultation, Normal Air Movement Abdomen: Normal Bowel Sounds, Soft, No Tenderness Current Medications: Current Medications Sig/Erma Start time Last Medication Dose Route Stop Time Status Admin Acetaminophen 650 MG Q6P PRN 04/30 2100 AC 05/07 PO 2008 Amlodipine Besylate 10 MG DAILY 05/03 900 AC 05/07 PO 1018 Ampicillin Sodium/ 3,000 MG Q6 05/02 1800 DC 05/07 Sulbactam Sodium IV 0543 Sodium Chloride 100 ML Atorvastatin Calcium 20 MG DAILY 05/01 900 AC 05/07 PO 1018 Baclofen 40 MG QAM 05/01 900 AC 05/07 PO 101 Baclofen 30 MG 1200,2100 04/30 2130 AC 05/07 PO 2005 Carbamazepine 600 MG BID 05/04 0930 AC 05/07 PO 2005 Carvedilol 25 MG BID 05/06 2100 AC 05/07 PO 2011 Heparin Sodium 0 .STK-MED ONE 05/07 1328 DC (Porcine) .ROUTE Heparin Sodium 5,000 UNIT Q8 04/30 2200 AC 05/08 (Porcine) SC 0541 Interferon Beta 1b 0.3 MG MoWeFr@2100 05/07 2100 AC 05/07 SC 2004 Interferon Beta 1b 0.3 MG MoWeFr@0900 05/07 0900 DC SC Lisinopril 40 MG BID 05/06 2100 AC 05/07 PO 2010 Magnesium Chloride 64 MG BID 05/05 1404 AC 05/07 PO 2007 Nystatin 1 KYREE ONCE ONE 05/08 0315 DC 05/08 TOP 05/08 0316 0415 Oxycodone HCl 5 MG Q6H PRN 04/30 2100 DC 05/05 PO 1734 Prednisone 5 MG DAILY 05/06 0900 AC 05/07 PO 1018 Tamsulosin HCl 0.4 MG DAILY 05/05 1215 AC 05/07 PO 1019 Tizanidine HCl 2 MG QPM PRN 04/30 2130 AC PO Last 24 Hrs of Lab/Tl Results Last 24 Hrs of Labs/Mics: Laboratory Tests 05/08/18 0615: Sodium Pending, Potassium Pending, Chloride Pending, Carbon Dioxide Pending, Anion Gap Pending, BUN Pending, Creatinine Pending, BUN/Creatinine Ratio Pending , Magnesium Pending Assessment/Plan Assessment: Mr. 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 PT recommended STR placement, magnesium today 1.7 and stable 1. Scrotal swelling 2. Cellulitis 3. HTN -Scrotal swelling improving with abx and elevation -Continue tamsulosin per urology -Gibbons has been DC'd, patient voiding regularly -Follow off antibiotics -Continue interferon and hold off on steroids. -C/w carbamazepine (levels wnl) and continue with baclofen -On amlodipine, continue lisinopril 40 mg daily bid and carvedilol 25mg Bid -Patient be discharged to [facility] pending bed approval Problem List: 1. Scrotum swelling 2. Cellulitis, scrotum 3. Scrotal swelling 4. Urinary retention 5. Disorder of optic nerve Pain Ratin Pain Location: none Pain Goal: Pain 4 or less Pain Plan: per pathway Tomorrow's Labs & Rationales: none Maryanne Morales MD 05/08/18 1157: Attending MD Review Statement Attending Statement Attending MD Statement: examined this patient, discuss w/resident/PA/MANAGEMENT SCIENTIST, agreed w/resident/PA/MANAGEMENT SCIENTIST, reviewed EMR data (avail), discussed with nursing, discussed with case mgmt, amended to note Attending Assessment/Plan: Patient seen and examined. Resting comfortably not in acute distress. He has been voiding freely following removal of Gibbons catheter yesterday. Bladder scan shows residual urine of about 100 - 150 cc. Unfortunately this morning is requiring more assistance to mobilize. Father reports that this is typical for him occasionally. Father reports that this is not consistent however with a flareup of his MS. Patient and family in agreement with discharging the patient to long term facility for short-term rehabilitation as recommended by the physical therapy service. Once patient improves he may be transitioned home from there. Urology follow-up appreciated. Patient will be discharged from tamsulosin and will follow up with urology service as an outpatient. Blood pressures appears to be improving following titration upwards of his home regimen. We will repeat blood pressure this morning. If blood pressure remains improved following medication therapy he will be discharged on the increased dose of his Coreg and amlodipine/benazepril combination.
[2018-05-08 06:53] VITALS: BP 150/80
--- NOTE | 2018-05-08 07:34 | PN- Student ---
Subjective Subjective: CC: Scrotal swelling HPI: 32 y/o male with a PMH of MS on Prednisone, CKD, HTN, Blindness 2 /2 optic nerve atrophy, and urinary retention for four years presented to the Emergency room 04/29/18 after being sent in by Dr. Cardona for painful scrotal swelling for two days. US revealed a right hydrocele and potential cellulitis without testicular torsion. Patient was sent home with topical fungal cream only. The next day, 04/30/18, the scrotal swelling progressed and doubled in size , which prompted a return to the ER with his father, who provides the majority of the history. The patient was admitted to general medicine for scrotal swelling/cellulitis on 04/30/10 and put on empiric antibiotic therapy with IV Vancomycin/Zosyn/Fluconazole which was later changed to IV Unasyn per Dr. Anglin. The patient was then transferred to Cardiology 05/04/18 for uncontrolled hypertension, tachycardia, headache, and an episode of becoming unresponsive. Yesterday afternoon, the patient's tucker catheter was removed and he was able to and continues to urinate independently. Per Dr. Cuba's note this morning, he feels it is okay to discharge patient home with a 1 week follow up at his office. This morning, the patient was interviewed and examined at bedside. The patient appears well and is hoping to go home. The patient denies headaches as well as any pain at all. The patient states that he is both sleeping and eating well. Patient continues with his ability to urinate without the need for a catheter and asked to go to the bathroom at the end of the interview. During the patient' s attempt to use the bathroom this morning, he experienced weakness and began to lower himself down to the floor until nursing staff came and assisted him to the commode. Patient denies fevers, chills, nightsweats, dizziness, chest pain, palpitations, shortness of breath, and abdominal pain. PMH: Multiple Sclerosis Chronic Kidney Disease Hypertension Blindness Urinary retention Cryptorchidism of Left testicle Surgical History: Testicular surgery for undescended testicle in childhood. No testicle was found Family History: Non-contributory Social History: Lives with parents Denies any Tobacco use Denies any Alcohol use Denies any Illicit drug use Current Medications Interferon Beta-1b 0.3mg SC Lisinopril 40mg PO BID Carvedilol 25mg PO BID Prednisone 5mg PO QD Magnesium Chloride 64mg PO BID Tamsulosin 0.4mg PO QD Carbamazepine 600mg PO BID Amlodipine 10mg PO QD Baclofen 40mg PO QAM Baclofen 30mg PO QPM and QHS Atorvastatin 20mg PO QD Heparin 5000units SC Q8hr Tizanidine HCl 2mg PO QPM PRN Oxycodone HCl 5mg PO Q6hr PRN Acetaminophen 650mg PO Q6hr PRN Allergies: Lactose - Lactose intolerance Adhesive tape - Blisters (Tegaderm is okay) Objective Objective: Vital Signs Date Time Temp Pulse Resp B/P B/P Pulse O2 O2 Flow FiO2 Mean Ox Delivery Rate 05/08 0653 98.0 86 20 150/80 96 Room Air 05/07 2334 98.9 86 20 150/80 94 Room Air 05/07 2012 92 134/70 05/07 2011 92 134/70 05/07 1503 98.1 87 20 132/78 97 Room Air 05/07 1019 91 162/82 05/07 1019 91 162/82 05/07 1018 91 162/82 05/07 1018 91 162/82 Intake & Output 05/08 0800 05/08 0000 05/07 1600 Intake Total 120 120 650 Output Total 345 682 7781 Balance -430 -230 -800 Intake, Oral 120 120 650 Output, Urine 579 637 2543 Physical Exam: General: NAD; Alert and Oriented x3; Appropriately responsive Skin: Warm; Dry; Scrotum and inguinal region have fungal dermatitis but continues to show improvement with decreased swelling and rash HEENT: Normocephalic; Atraumatic; No tracheal deviation noted Lungs: Clear to auscultation bilaterally with an anterior and lateral approach Heart: Normal S1 and S2; No murmurs, gallops, or rubs noted upon ausculatation with diaphragm Abdomen: No visible distention; Normoactive bowel sounds in all four quadrants; Non-tender to palpation in all four quadrants : Swollen scrotum; Erythematous inguinal folds. Extremities: Normal pulses; No edema noted; No spasticity noted Neuro: CN III-XII in tact Both the scrotum and the inguinal folds have show marked improvement with decreased swelling over the course of his stay. Overnight, the patient remained in NSR with a heart rate from 70-87bpm. Results Results: Laboratory Tests 05/08/18 0615: Anion Gap 8, Estimated GFR > 60, BUN/Creatinine Ratio 40.0 H, Magnesium 1.7 05/07/18 0633: Anion Gap 5, Estimated GFR > 60, BUN/Creatinine Ratio 33.3 H, Magnesium 1.6 05/06/18 0847: Magnesium 1.7 Assessment/Plan Assessment: 32 y/o male with a PMH of MS on Prednisone, CKD, Urinary retention, HTN, cryptorchidism of left testicle, and Blindness 2/2 optic nerve atrophy for four years presented to the ER with painful scrotal swelling for three days. Patient was admitted to [facility] for painful scrotal swelling 04/30/18 and transferred to Cardiology 05/04/18 for uncontrolled HTN, tachycardia, and an episode of becoming unresponsive. Plan: Hypertension Lisinopril 40mg PO BID Carvedilol 25mg PO BID Amlodipine 10mg PO QD New Onset Headache Follow pain management pathway Scrotal Cellulitis 24/04 Scrotal elevation No growth on Blood cultures x4 days or Urine cultures x2 days Will monitor patient with frequent physical exams Scrotal Fungal Dermatitis Daily application of Nystatin cream Urinary Retention Tamsulosin 0.4mg PO QD Patient currently urinating without the need for a catheter PMH of Multiple Sclerosis Prednisone 5mg PO QD Interferon Beta-1b 0.3mg SC Unresponsive episode Monday Possible seizure activity per Dr. Murillo Carbamazepine 600mg PO BID --> Current blood level WNL @ 6.7ug/mL Normocytic Anemia Continue supportive measures DVT Prophylaxis Heparin 5000units SC Q8hr Plan to discharge today to [facility] barring any complications Full code
--- NOTE | 2018-05-08 07:35 | PN- Urology ---
Subjective Subjective: Comfortable Objective Vital Signs and I&Os Vital Signs Date Time Temp Pulse Resp B/P B/P Pulse O2 O2 Flow FiO2 Mean Ox Delivery Rate 05/08 0653 98.0 86 20 150/80 96 Room Air 05/07 2334 98.9 86 20 150/80 94 Room Air 05/07 2012 92 134/70 05/07 2011 92 134/70 05/07 1503 98.1 87 20 132/78 97 Room Air 05/07 1019 91 162/82 05/07 1019 91 162/82 05/07 1018 91 162/82 05/07 1018 91 162/82 Intake & Output 05/08 0805/08 0000 05/07 1600 05/07 0800 05/07 0000 05/06 1600 Intake Total 120 120 650 259 173 4769 Output Total 543 106 5077 550 1000 3500 Balance -430 -230 -800 30 -40 -2454 Intake, IV 100 100 Intake, Oral 120 120 650 480 960 946 Number 0 0 Bowel Movements Output, Urine 457 333 5301 550 1000 3500 Patient 222 lb Weight Gibbons is out. Patient voiding spontaneously Scrotum continues to decrease in size. No erythema. No open wounds. No tenderness Laboratory Tests 05/08 615 Chemistry Sodium Pending Potassium Pending Chloride Pending Carbon Dioxide Pending Anion Gap Pending BUN Pending Creatinine Pending BUN/Creatinine Ratio Pending Magnesium Pending Assessment/Plan Assessment/Plan Imp: 1. Scrotal edema, markedly improved. Etiology not entirely clear. Was likely scrotal cellulitis 2. Urinary retention resolved Plan: 1. Continue tamsulosin 2. From my point of view OK to discharge home off abx with f/u in my office in 1 week
[2018-05-08] MEDS ORDERED: AMLODIPINE-BEN1 EAC5 PO (08:03)
[2018-05-08] MEDS ORDERED: FLOMAX0.4 M1 PO (08:03)
[2018-05-08] MEDS ORDERED: CARVEDILOL25 M1 PO (08:03)
--- NOTE | 2018-05-08 10:13 | PN- Infect Dx ---
Subjective Subjective: Afebrile without complaints. He is urinating well status post removal of the Gibbons catheter yesterday. He is having some loose stools. Objective Last 24 Hrs of Vital Signs/I&O Vital Signs Date Time Temp Pulse Resp B/P B/P Pulse O2 O2 Flow FiO2 Mean Ox Delivery Rate 05/08 0850 90 160/90 / 0850 90 160/90 05/08 0850 90 160/90 / 0850 90 160/90 05/08 0653 98.0 86 20 150/80 96 Room Air 05/07 2334 98.9 86 20 150/80 94 Room Air 05/07 2012 92 134/70 05/07 2011 92 134/70 05/07 1503 98.1 87 20 132/78 97 Room Air 05/07 1019 91 162/82 05/07 1019 91 162/82 05/07 1018 91 162/82 05/07 1018 91 162/82 Intake & Output 05/08 1600 05/08 0800 05/08 0000 Intake Total 120 120 Output Total 125 550 350 Balance -125 -430 -230 Intake, Oral 120 120 Number 2 Bowel Movements Output, Urine 125 550 350 Physical Exam Other Physical Findings: He appears comfortable in no acute distress marked decrease in the scrotal edema, with no erythema or tenderness Results Last 24 Hours of Lab Results: Laboratory Tests 05/08 615 Chemistry Sodium (137 - 145 mmol/L) 139 Potassium (3.5 - 5.1 mmol/L) 4.3 Chloride (98 - 107 mmol/L) 106 Carbon Dioxide (22 - 30 mmol/L) 25 Anion Gap (5 - 16) 8 BUN (9 - 20 mg/dL) 28 H Creatinine (0.7 - 1.2 mg/dL) 0.7 Estimated GFR (>60 ml/min) > 60 BUN/Creatinine Ratio (7 - 25 %) 40.0 H Magnesium (1.6 - 2.3 mg/dL) 1.7 Last 24 Hours of Tl Results: Blood cultures May 04 remain negative Assessment/Plan ID Impression: Stable, with temperatures and white blood cell count remaining normal, off antibiotics status post 1 week of treatment with Unasyn for a presumed scrotal cellulitis, with near resolution of the scrotal inflammation. He appears to be voiding well status post removal of the Gibbons catheter yesterday. Suggestion: 1. Continue to follow off antibiotics
[2018-05-08 12:24] VITALS: BP 124/80
[2018-05-08 14:11] VITALS: BP 128/78
[2018-05-08 15:44] VITALS: BP 128/78
--- NOTE | 2018-05-08 16:27 | Patient Discharge Instructions ---
Discharge Instructions General Discharge Information You were seen/treated for: Scrotal swelling & cellulitis Watch for these problems: If you have worsening swelling in your scrotum, or if you are unable to urinate , please go to your nearest emergency department Special Instructions: Please follow up with your urologist, primary care doctor about your recent hospitalization Diet Continue normal diet: Yes Recommended Diet: Regular Activity Full Activity/No Limits: No Activity Self Limited: Yes Acute Coronary Syndrome Inclusion Criteria At DC or during hospital stay patient has or had the following: ACS DIAGNOSIS No Discharge Core Measures Meds if any: Prescribed or Continued at Discharge Meds if any: NOT Prescribed or Continued at Discharge Congestive Heart Failure Inclusion Criteria At DC or during hospital stay patient has or had the following: CHF DIAGNOSIS No Discharge Core Measures Meds if any: Prescribed or Continued at Discharge Meds if any: NOT Prescribed or Continued at Discharge Cerebrovascular accident Inclusion Criteria At DC or during hospital stay patient has or had the following: CVA/TIA Diagnosis No Discharge Core Measures Meds if any: Prescribed or Continued at Discharge Meds if any: NOT Prescribed or Continued at Discharge Venous thromboembolism Inclusion Criteria VTE Diagnosis No VTE Type NONE VTE Confirmed by (Test) NONE Discharge Core Measures - Per Current guidelines, there needs to be overlap - treatment for the first 5 days of Warfarin therapy. - If discharged on Warfarin prior to 5 days of - overlap therapy, the patient will need to be - assessed for post discharge needs including - *Post discharge parental anticoagulation - *Warfarin and/or parental anticoagulation education - *Follow up date to check INR post discharge At least 5 days overlap therapy as Inpatient No Meds if any: Prescribed or Continued at Discharge Note: Overlap Therapy is Warfarin and Anticoagulant Meds if any: NOT Prescribed or Continued at Discharge
== END 2018-05-08 16:45 | DRG 501 ==
LOC: ERH 15:55 → ERHI 19:10 → 1NO 19:10 → 2NB 19:10 → ENRESERV 19:53 → ENTRNSPT 21:06 → EDTRNSPT 21:11 → EDTRNSPTSTS 21:11 → 2NB 21:26 → CMPTRNSPT 21:28 → 2NB 05-01 11:54 → 1NO 05-04 14:47
PROVIDERS: Hospitalist; Physician Assistant; Student in an Organized Health Care Education/Training Program
DX: N49.2 Inflammatory disorders of scrotum (principal); G35 Multiple sclerosis; B36.8 Other specified superficial mycoses; H54.8 Legal blindness, as defined in USA; N43.3 Hydrocele, unspecified; I12.9 Hypertensive chronic kidney disease with stage 1 through stage 4 chronic kidney disease, or unspecified chronic kidney disease; N18.9 Chronic kidney disease, unspecified; R33.9 Retention of urine, unspecified; D64.9 Anemia, unspecified; R00.0 Tachycardia, unspecified; Q55.0 Absence and aplasia of testis; Z79.52 Long term (current) use of systemic steroids
CPT/HCPCS: 1NP; 2NBSP; 36415; 36592; 71045; 74177; 81001; 82436; 87015; 87040; 87045; 87071; 87086; 87899; 87899-59; 93005; 93010; 97116-GO; 97161-GP; 97530-GO; J0131; J1040; J1450; J1644; J2185; J2543; J3370; J7040; J7060; J7512